=== PATIENT | male | born 1950 | race Caucasian/White ===

== ENCOUNTER 2018-12-14 14:22 | Inpatient (IN) | payer OTHER ==
[~2018-12-14] VITALS: Ht 172.7 cm; Wt 205.0 kg
--- NOTE | 2018-12-14 14:42 | NUR ---
PT IS IN ROOM #1B. DR TRIPATHI EVALUATED THE PT.
[2018-12-14 15:01] LABS: BASOPHILS # (AUTO) 0.1 K/uL (0.0-8.0); BASOPHILS % (AUTO) 0.8 % (0.0-2.0); EOSINOPHILS # (AUTO) 0.1 K/uL (0.0-0.7); EOSINOPHILS % (AUTO) 1.5 % (0.0-7.0); HEMATOCRIT 44.5 % (36.7-47.1); HEMOGLOBIN 14.3 g/dL (12.5-16.3); LYMPHOCYTES # (AUTO) 1.3 K/uL (20.0-40.0); LYMPHOCYTES % (AUTO) 19.9 % (20.5-51.5); MEAN CORPUSCULAR HEMOGLOBIN 32.2 uug (23.8-33.4); MEAN CORPUSCULAR HGB CONC 32 g/dL (32.5-36.3); MEAN CORPUSCULAR VOLUME 100.1 fL (73.0-96.2); MONOCYTES # (AUTO) 0.9 K/uL (2.0-10.0); MONOCYTES % (AUTO) 13.6 % (0.0-11.0); NEUTROPHILS # (AUTO) 4.1 K/uL (1.8-8.9); NEUTROPHILS % (AUTO) 64.2 % (38.5-71.5); PLATELET COUNT (AUTO) 229 K/uL (152-348); RED BLOOD CELL COUNT(AUTO) 4.45 MIL/uL (4.06-5.63); WHITE BLOOD COUNT (AUTO) 6.4 K/uL (3.6-10.2)
[2018-12-14 15:03] LABS: CREATININE 1.1 mg/dL (0.6-1.3); POTASSIUM 3.8 mmol/L (3.5-5.1)
[2018-12-14 15:05] LABS: ABG BASE EXCESS 8.2 mmol/L; ABG HCO3 36.5 mmol/L; ABG PCO2 66.8 mmHg (35.0-45.0); ABG PH 7.355 (7.350-7.450); ABG PO2 75.1 mmHg (75.0-100.0); ABG SITE RIGHT RADIAL; ABG TOTAL HEMOGLOBIN 15.1 G/dL (13.5-18.0); COHb 2.3 % (0.5-1.5); MetHb 0.1 % (0.0-1.5); O2Hb 92.1 % (94.0-97.0); VENT MODE Nasal Cannula
[2018-12-14 15:15] LABS: BILIRUBIN,DIRECT 1.3 mg/dL (0.0-0.2); TOTAL PROTEIN, SERUM 7.3 g/dL (6.4-8.2)
[2018-12-14] MEDS ORDERED: FUROSEMIDE 20 MG/2 ML VIAL IV ONE (15:30)
[2018-12-14] MEDS ORDERED: FUROSEMIDE 40 MG/4 ML VIAL ONE (15:40)
[2018-12-14] MEDS ORDERED: FURO-151 PO (15:46)
[2018-12-14] MEDS ORDERED: METO-357 PO (15:46)
[2018-12-14] MEDS ORDERED: ALLO100T PO (15:51)
[2018-12-14] MEDS ORDERED: TAMS-3 PO (15:51)
[2018-12-14] MEDS ORDERED: GABA-534 PO (15:51)
[2018-12-14] MEDS ORDERED: WARF3TAB29 PO (15:51)
[2018-12-14] MEDS ORDERED: FINA5TAB11 PO (15:51)
[2018-12-14] MEDS ORDERED: CHOL10005 PO (15:51)
[2018-12-14] MEDS ORDERED: COLCHICINE PO (15:51)
--- NOTE | 2018-12-14 16:09 | NUR ---
BARIATHRIC BED WAS ORDERD FOR THE PT FROM [employer]. . AURELIO IS 2 HRS.
[2018-12-14] MEDS ORDERED: MORPHINE SULFATE 2 MG/1 ML DISP.SYRIN IV PRN (18:00)
[2018-12-14] MEDS ORDERED: WARFARIN SODIUM 3 MG PO SCH (18:00)
[2018-12-14] MEDS ORDERED: ONDANSETRON 4 MG/2 ML VIAL IV PRN (18:00)
[2018-12-14] MEDS ORDERED: [UNRECOGNIZED DRUG - OTHER] PO SCH (18:00)
[2018-12-14] MEDS ORDERED: Z GUARD REMEDY PASTE 57 GM TUBE TOP PRN (18:00)
[2018-12-14] MEDS ORDERED: MAGNESIUM HYDROXIDE 30 ML LIQUID UDC PO PRN (18:00)
[2018-12-14] MEDS ORDERED: ENOXAPARIN SODIUM 40 MG/0.4 ML DISP.SYRIN SQ SCH (18:00)
[2018-12-14] MEDS ORDERED: TEMAZEPAM 15 MG CAPSULE PO PRN (18:00)
[2018-12-14] MEDS ORDERED: CHOLECALCIFEROL U PO SCH (18:00)
[2018-12-14] MEDS ORDERED: HYDROCODONE/APAP 5-325MG TABLET PO PRN (18:00)
[2018-12-14] MEDS ORDERED: ENOXAPARIN SODIUM 40 MG/0.4 ML DISP.SYRIN SQ ONE (18:19)
[2018-12-14] MEDS ORDERED: PANTOPRAZOLE SODIUM 40 MG TABLET.DR PO ONE (18:19)
[2018-12-14] MEDS: PANTOPRAZOLE SODIUM 40 MG TABLET.DR PO SCH (18:20)
--- NOTE | 2018-12-14 22:00 | NUR ---
Report given to Lionel SHAPE CARVER.
--- NOTE | 2018-12-14 22:15 | NUR ---
Pt downgraded to LEMUEL.
--- NOTE | 2018-12-14 22:32 | NUR ---
Report given to Keely SHAVER LEMUEL.
--- NOTE | 2018-12-14 23:00 | NUR ---
Received patient from ED via bariatric bed accompanied by 2 ED nurses. Patient is alert and oriented x 3, noted patient obese and unable to ambulate but he is able to move his arms to perform some ADLs and able to move his legs as well. Patient is continent. He has oxygen support at 5lpm via nasal cannula and he is saturating at 95%. He has an IV access on his right arm, 18g intact. Patient oriented to unit to which he verbalized understanding. Patient is admitted under LEMUEL status. Will closely monitor.
[2018-12-15] VITALS (8 sets, daily range): BP systolic 93–134; BP diastolic 51–78
--- NOTE | 2018-12-15 06:38 | NUR ---
Patient slept intermittently throughout the shift. No complaints made. Attended all needs. Ensured safety and comfort. Noted chest xray was just taken by radiologist.
[2018-12-15 07:49] LABS: BASOPHILS % (AUTO) 0.8 % (0.0-2.0); EOSINOPHILS # (AUTO) 0.1 K/uL (0.0-0.7); EOSINOPHILS % (AUTO) 1.7 % (0.0-7.0); HEMATOCRIT 43.5 % (36.7-47.1); HEMOGLOBIN 14.1 g/dL (12.5-16.3); LYMPHOCYTES # (AUTO) 1.2 K/uL (20.0-40.0); LYMPHOCYTES % (AUTO) 21.1 % (20.5-51.5); MEAN CORPUSCULAR HEMOGLOBIN 32.2 uug (23.8-33.4); MEAN CORPUSCULAR HGB CONC 32 g/dL (32.5-36.3); MEAN CORPUSCULAR VOLUME 99.7 fL (73.0-96.2); MONOCYTES # (AUTO) 0.7 K/uL (2.0-10.0); MONOCYTES % (AUTO) 12.6 % (0.0-11.0); NEUTROPHILS # (AUTO) 3.5 K/uL (1.8-8.9); NEUTROPHILS % (AUTO) 63.8 % (38.5-71.5); PLATELET COUNT (AUTO) 213 K/uL (152-348); RED BLOOD CELL COUNT(AUTO) 4.37 MIL/uL (4.06-5.63); WHITE BLOOD COUNT (AUTO) 5.5 K/uL (3.6-10.2)
--- NOTE | 2018-12-15 08:00 | NUR ---
RESTING COMFORTABLY, AWAKE AND ABLE TO VERBALIZE NEEDS WITH 5L NC, O2 REDUCED TO 3L SATURATING 91%. CONTROLLED ABIB ON MONITOR
[2018-12-15 08:10] LABS: ALANINE AMINOTRANSFERASE < 6 U/L (16-63); ALKALINE PHOSPHATASE 130 U/L (50-136); ASPARTATE AMINOTRANSFERASE 27 U/L (15-37); CARBON DIOXIDE 37 mmol/L (21-32); CHLORIDE 102 mmol/L (98-107); CHOLESTEROL 56 mg/dL (<200); GLUCOSE 85 mg/dL (74-106); HDL CHOLESTEROL 15 mg/dL (40-60); MAGNESIUM 1.8 mg/dL (1.8-2.4); PHOSPHOROUS 3.5 mg/dL (2.5-4.9); POTASSIUM 4.1 mmol/L (3.5-5.1); TOTAL PROTEIN, SERUM 7.2 g/dL (6.4-8.2); TRIGLYCERIDES 52 MG/DL (30-150); UREA NITROGEN, BLOOD 13 mg/dL (7-18)
[2018-12-15 08:18] LABS: THYROID STIMULATING HORMONE 1.761 mIU/mL (0.358-3.740)
[2018-12-15] MEDS: TAMSULOSIN HCL 0.4 MG CAP.SR.24H PO SCH (08:35)
[2018-12-15] MEDS: ALLOPURINOL 100 MG TABLET PO SCH (08:35)
[2018-12-15] MEDS: FUROSEMIDE 40 MG/4 ML VIAL IV SCH ×3 (08:35→17:22)
[2018-12-15] MEDS: FINASTERIDE 5 MG TABLET PO SCH (08:35)
[2018-12-15] MEDS: GABAPENTIN 300 MG CAPSULE PO SCH ×3 (08:35→17:22)
[2018-12-15 08:36] LABS: *BILIRUBIN,URIN NEGATIVE (NEGATIVE); *BLOOD, URINE NEGATIVE (NEGATIVE); *CLARITY,URINE CLEAR (CLEAR); *COLOR,URINE YELLOW (YELLOW); *KETONES,URINE NEGATIVE (NEGATIVE); LEUKOCYTE ESTERASE ,URINE TRACE (NEGATIVE); NITRITE, URINE NEGATIVE (NEGATIVE); PH,URINE 5.5 (5.0-8.0); UGLUCOSE NEGATIVE (NEGATIVE)
[2018-12-15] MEDS: METOPROLOL SUCCINATE XL 50 MG TAB.SR.24H PO SCH (08:36)
[2018-12-15 08:38] LABS: BACTERIA,URINE NONE SEEN /HPF (NONE SEEN); RBC,URINE NONE SEEN /HPF (0-3); SQUAMOUS EPITHELIAL CELL,UR FEW /HPF (NONE SEEN); WBC,URINE 0-3 /HPF (0-3)
[2018-12-15] MEDS ORDERED: FUROSEMIDE 40 MG TABLET PO SCH (09:00)
--- NOTE | 2018-12-15 13:16 | NUR ---
CONTINUE CURRENT TX PLAN, DIURETICS AND HEART MONITORING CONTROLLED AFIB ON MONITOR.
[2018-12-15] MEDS ORDERED: WARFARIN SODIUM 1 MG TABLET PO SCH (17:00)
[2018-12-15] MEDS ORDERED: WARFARIN SODIUM 2 MG TABLET PO SCH (17:00)
--- NOTE | 2018-12-15 18:22 | NUR ---
CONTINUE WITH O2 AT 5L NC SATURATING 92%, TOLERATING LASIX IV ORDERED. BP WNL. REMAINS AFIB ON MONITOR CONTROLLED
[2018-12-15] MEDS: ALBUTEROL SULFATE 2.5 MG/ 0.5 ML NEBU NEB PRN (20:29)
--- NOTE | 2018-12-15 23:00 | NUR ---
Patient received on NC with bubble humidifier at 5LpmO2 . PRN Inline HHN Tx administered per SOB. No adverse reactions noted. Placed on Bipap 15/5 RR16 per MD order. FiO2 titrated to maintain SpO2>93%. Pt states he is comfortable on current settings. Will continue to monitor throughout shift.
[2018-12-16 00:42] VITALS: BP 116/74
[2018-12-16 05:00] VITALS: BP 111/66
[2018-12-16] MEDS: PANTOPRAZOLE SODIUM 40 MG TABLET.DR PO SCH (06:11)
[2018-12-16 07:16] LABS: BASOPHILS % (AUTO) 0.2 % (0.0-2.0); EOSINOPHILS % (AUTO) 0.6 % (0.0-7.0); HEMATOCRIT 42.9 % (36.7-47.1); HEMOGLOBIN 13.6 g/dL (12.5-16.3); LYMPHOCYTES # (AUTO) 1.2 K/uL (20.0-40.0); LYMPHOCYTES % (AUTO) 19.8 % (20.5-51.5); MEAN CORPUSCULAR HGB CONC 32 g/dL (32.5-36.3); MEAN CORPUSCULAR VOLUME 100.5 fL (73.0-96.2); MONOCYTES # (AUTO) 0.7 K/uL (2.0-10.0); MONOCYTES % (AUTO) 11.6 % (0.0-11.0); NEUTROPHILS # (AUTO) 4.1 K/uL (1.8-8.9); NEUTROPHILS % (AUTO) 67.8 % (38.5-71.5); PLATELET COUNT (AUTO) 207 K/uL (152-348); RED BLOOD CELL COUNT(AUTO) 4.27 MIL/uL (4.06-5.63); WHITE BLOOD COUNT (AUTO) 6.1 K/uL (3.6-10.2)
--- NOTE | 2018-12-16 07:17 | NUR ---
AWAKE ALERT AND ORIENTED X3 RESTING COMFORTABLY WITH 5L O2 NC. CONTROLLED AFIB ON MONITOR
[2018-12-16 07:18] LABS: POTASSIUM 3.9 mmol/L (3.5-5.1)
[2018-12-16 07:45] VITALS: BP 117/80
[2018-12-16] MEDS: FINASTERIDE 5 MG TABLET PO SCH (08:19)
[2018-12-16] MEDS: METOPROLOL SUCCINATE XL 50 MG TAB.SR.24H PO SCH (08:19)
[2018-12-16] MEDS: GABAPENTIN 300 MG CAPSULE PO SCH ×3 (08:20→17:32)
[2018-12-16] MEDS: ALLOPURINOL 100 MG TABLET PO SCH (08:20)
[2018-12-16] MEDS: FUROSEMIDE 40 MG/4 ML VIAL IV SCH ×3 (08:20→17:33)
[2018-12-16] MEDS: TAMSULOSIN HCL 0.4 MG CAP.SR.24H PO SCH (08:20)
[2018-12-16 11:17] VITALS: BP 108/69
--- NOTE | 2018-12-16 11:55 | NUR ---
SEEN BY PHYSICAL THERAPY AT BEDSIDE SEE NOTES
[2018-12-16] MEDS ORDERED: METOLAZONE 5 MG TABLET PO ONE (12:30)
[2018-12-16 15:17] VITALS: BP 114/72
[2018-12-16 19:51] VITALS: BP 119/81
[2018-12-17] VITALS (7 sets, daily range): BP systolic 104–134; BP diastolic 64–86
--- NOTE | 2018-12-17 00:01 | NUR ---
Resting comfortably. Placed on BiPaP by RT; after midnight. Incon't. urine & stool. Remains on MaxxAir rotation bed. Sleeping well.
[2018-12-17] MEDS: PANTOPRAZOLE SODIUM 40 MG TABLET.DR PO SCH (05:59)
[2018-12-17 07:23] LABS: BASOPHILS % (AUTO) 0.7 % (0.0-2.0); EOSINOPHILS # (AUTO) 0.1 K/uL (0.0-0.7); EOSINOPHILS % (AUTO) 0.9 % (0.0-7.0); HEMATOCRIT 45.5 % (36.7-47.1); HEMOGLOBIN 14.4 g/dL (12.5-16.3); LYMPHOCYTES # (AUTO) 1.2 K/uL (20.0-40.0); LYMPHOCYTES % (AUTO) 18.6 % (20.5-51.5); MEAN CORPUSCULAR HGB CONC 32 g/dL (32.5-36.3); MEAN CORPUSCULAR VOLUME 101.1 fL (73.0-96.2); MONOCYTES # (AUTO) 0.7 K/uL (2.0-10.0); MONOCYTES % (AUTO) 12.1 % (0.0-11.0); NEUTROPHILS # (AUTO) 4.2 K/uL (1.8-8.9); NEUTROPHILS % (AUTO) 67.7 % (38.5-71.5); PLATELET COUNT (AUTO) 179 K/uL (152-348); WHITE BLOOD COUNT (AUTO) 6.2 K/uL (3.6-10.2)
--- NOTE | 2018-12-17 08:30 | NUR ---
PT REFUSED TO HAVE AN ABG AT THIS TIME.
[2018-12-17 09:11] LABS: CREATININE 1.1 mg/dL (0.6-1.3); MAGNESIUM 1.7 mg/dL (1.8-2.4); PHOSPHOROUS 3.4 mg/dL (2.5-4.9); POTASSIUM 3.4 mmol/L (3.5-5.1)
--- NOTE | 2018-12-17 09:15 | NUR ---
RECIEVED AN ABNORMAL RESULT FROM THE LAB INR-6.2, CO2-42.
--- NOTE | 2018-12-17 09:30 | NUR ---
SEEN AND EXAMINED BY DR ANTHONY WITH NEW ORDERS. PT GOT CONVINCED TO HAVE AN ABG PER DR ANTHONY. NOTIFIED RT.
[2018-12-17] MEDS: METOPROLOL SUCCINATE XL 50 MG TAB.SR.24H PO SCH (09:33)
[2018-12-17] MEDS: FUROSEMIDE 40 MG/4 ML VIAL IV SCH ×3 (09:33→17:40)
[2018-12-17] MEDS: FINASTERIDE 5 MG TABLET PO SCH (09:34)
[2018-12-17] MEDS: GABAPENTIN 300 MG CAPSULE PO SCH ×3 (09:34→17:41)
[2018-12-17] MEDS: ALLOPURINOL 100 MG TABLET PO SCH (09:41)
--- NOTE | 2018-12-17 09:45 | NUR ---
NOTIFIED LINDA, AND HE ORDERED TO HOLD COUMADIN.
[2018-12-17] MEDS: TAMSULOSIN HCL 0.4 MG CAP.SR.24H PO SCH (09:56)
[2018-12-17 11:08] LABS: ABG PCO2 72.4 mmHg (35.0-45.0); ABG PH 7.411 (7.350-7.450); ABG PO2 65.4 mmHg (75.0-100.0); ABG SITE RIGHT RADIAL; ABG TOTAL HEMOGLOBIN 15.7 G/dL (13.5-18.0); COHb 2.4 % (0.5-1.5); MetHb 0.2 % (0.0-1.5); O2Hb 91.1 % (94.0-97.0); VENT MODE Nasal Cannula
[2018-12-17] MEDS ORDERED: POTASSIUM CHLORIDE 20 MEQ TAB.PRT.SR PO ONE (11:15)
[2018-12-17] MEDS ORDERED: MAGNESIUM OXIDE 400 MG TABLET PO ONE (11:15)
--- NOTE | 2018-12-17 11:30 | NUR ---
ABG RESULT IN. PCO2-72.4, PO2-65.7, PH-7.41. O2SAT IS MAINTAINEDE AT 94%. NO APARENT RESPIRATORY DISTRESS NOTED.
--- NOTE | 2018-12-17 15:06 | NUR ---
WOUND CARE CONSULT: PT REFUSED SKIN ASSESSMENT AT THIS TIME. PT BECOMES VERY SHORT OF BREATH EASILY. RECOMMENDATIONS MADE FOR SKIN PROTECTION. DISCUSSED WITH NURSING STAFF. PT ON [facility] ETS AIR BED. WILL SEE PRN.
[2018-12-17] MEDS ORDERED: COUMADIN VARIABLE DOSE REMINDE XX SCH (17:00)
--- NOTE | 2018-12-17 20:00 | NUR ---
RECEIVED PT RESTING QUITELY BUT AROUSABLE. ON O2 @ 5L NC W/ HUMIDIFIER, W/ O2 SAT OF 94%. HEP LOCK ON R FA INTACT & PATENT. DENIES PAIN , NOT IN ANY DISTRESS.
--- NOTE | 2018-12-17 21:00 | NUR ---
PATIENT PLACED ON BIPAP AT THIS TIME PER NOCTURNAL ORDER. REFER TO RESP. MECHANICAL VENT COMPLEX NOTES FOR VENT SETTINGS AND SET ALARMS. CONTINUOUS PULSE OXIMETER IS ON AND AUDIBLE. PROTECTA GEL IS IN PLACE. AMBU BAG AT BEDSIDE. PT IS STABLE AT THIS TIME. WILL CONTINUE TO MONITOR THROUGHOUT SHIFT. Addendum: 12/18/18 at 0353 by BESSIE LEARY RT INTERVENTION DONE AT 2300
--- NOTE | 2018-12-17 22:00 | NUR ---
PLACED ON BIPAP W/ SETTINGS OF I-15/E-5, RATE-16,FIO2-50% W/ O2 SAT OF 94%.
[2018-12-17] MEDS ORDERED: ACETAzolamide SODIUM 500 MG VIAL IV ONE (22:30)
[2018-12-18] VITALS: BP 126/69
[2018-12-18 04:00] VITALS: BP 126/69
--- NOTE | 2018-12-18 06:00 | NUR ---
resting quitely on bipap after repositioned in bed.
[2018-12-18] MEDS: PANTOPRAZOLE SODIUM 40 MG TABLET.DR PO SCH (06:38)
[2018-12-18 06:42] LABS: BASOPHILS % (AUTO) 0.4 % (0.0-2.0); EOSINOPHILS # (AUTO) 0.1 K/uL (0.0-0.7); EOSINOPHILS % (AUTO) 1.2 % (0.0-7.0); HEMATOCRIT 47.2 % (36.7-47.1); HEMOGLOBIN 14.8 g/dL (12.5-16.3); LYMPHOCYTES # (AUTO) 1.1 K/uL (20.0-40.0); LYMPHOCYTES % (AUTO) 16.3 % (20.5-51.5); MEAN CORPUSCULAR HEMOGLOBIN 31.9 uug (23.8-33.4); MEAN CORPUSCULAR HGB CONC 31 g/dL (32.5-36.3); MEAN CORPUSCULAR VOLUME 101.6 fL (73.0-96.2); MONOCYTES # (AUTO) 0.8 K/uL (2.0-10.0); NEUTROPHILS # (AUTO) 4.9 K/uL (1.8-8.9); NEUTROPHILS % (AUTO) 70.1 % (38.5-71.5); PLATELET COUNT (AUTO) 196 K/uL (152-348); RED BLOOD CELL COUNT(AUTO) 4.64 MIL/uL (4.06-5.63); WHITE BLOOD COUNT (AUTO) 6.9 K/uL (3.6-10.2)
[2018-12-18 07:16] LABS: MAGNESIUM 1.7 mg/dL (1.8-2.4)
[2018-12-18 07:19] LABS: POTASSIUM 3.3 mmol/L (3.5-5.1)
--- NOTE | 2018-12-18 07:30 | NUR ---
report received from Christina SHAVER 68 yr old male was admitted on 12/14/18 for shortness of breath. on BIPAP all night 31/10 rate 16 fio2 50% .has saline lock . garay catheter intact ekg afib hr 70/min Addendum: 12/18/18 at 0752 by LISA HENDERSON RN Amended: Links added.
[2018-12-18 08:10] VITALS: BP 138/61
[2018-12-18] MEDS ORDERED: POTASSIUM CHLORIDE 20 MEQ TAB.PRT.SR PO ONE ×2 (08:45→15:45)
[2018-12-18] MEDS ORDERED: MAGNESIUM OXIDE 400 MG TABLET PO ONE (08:45)
[2018-12-18] MEDS: FUROSEMIDE 40 MG/4 ML VIAL IV SCH ×3 (08:51→16:58)
[2018-12-18] MEDS: GABAPENTIN 300 MG CAPSULE PO SCH ×3 (08:55→16:58)
[2018-12-18] MEDS: METOPROLOL SUCCINATE XL 50 MG TAB.SR.24H PO SCH (08:55)
[2018-12-18] MEDS: FINASTERIDE 5 MG TABLET PO SCH (08:55)
[2018-12-18] MEDS: ALLOPURINOL 100 MG TABLET PO SCH (08:57)
[2018-12-18 09:52] LABS: ABG BASE EXCESS 26.1 mmol/L; ABG HCO3 59.4 mmol/L; ABG PCO2 105.3 mmHg (35.0-45.0); ABG PH 7.369 (7.350-7.450); ABG PO2 60.3 mmHg (75.0-100.0); ABG SITE LEFT RADIAL; ABG TOTAL HEMOGLOBIN 15.9 G/dL (13.5-18.0); COHb 2.6 % (0.5-1.5); MetHb 0.2 % (0.0-1.5); O2Hb 87.6 % (94.0-97.0); VENT MODE Nasal Cannula
[2018-12-18] MEDS: TAMSULOSIN HCL 0.4 MG CAP.SR.24H PO SCH (10:03)
--- NOTE | 2018-12-18 10:05 | NUR ---
k3.3 covered with Kdur 40meq po magnesium 1.7 covered with mag oxide 800mg po Addendum: 12/18/18 at 1427 by LISA HENDERSON RN Amended: Links added.
[2018-12-18] MEDS: POLYVINYL ALCOHOL OPHT DROPS 15 ML BOTTLE EACHEYE PRN (10:22)
--- NOTE | 2018-12-18 11:38 | NUR ---
WOUND CARE CONSULT: PT PRESENTS WITH RESOLVING REDNESS AND EDEMA TO LOWER LEGS AND RASH TO LEFT ABDOMINAL FOLD. RECOMMENDATIONS MADE FOR SKIN PROTECTION AND CARE. DISCUSSED WITH NURSING STAFF. PT ON LOW AIRLOSS [facility] BED. AUBREY NOTED AT THIS TIME WITH LARGE AMOUNT OF URINE IN DRAINAGE BAG. PT INCONTINENT OF STOOL. WILL SEE PRN. GRESHAM IN AGREEMENT WITH PLAN OF CARE. Addendum: 12/18/18 at 1141 by CAITLYN EVERETT RN Amended: Links added.
[2018-12-18] MEDS ORDERED: ACETAzolamide SODIUM 500 MG VIAL IV ONE (13:15)
[2018-12-18 13:34] VITALS: BP 92/51
--- NOTE | 2018-12-18 14:21 | NUR ---
mindi this am with following results ph 7.36, pco2 105 and po2 60. patient advised back to BIPAP but he said he was comfortabl at present. so2 saturation 88-92%. but during physical therapy he was desaturating to 85%. had lunch and patient agreed will go back to BIPAP till dinner time Addendum: 12/18/18 at 1422 by LISA HENDERSON RN Amended: Links added.
--- NOTE | 2018-12-18 15:45 | NUR ---
seen by dr He. with new orders. aware of patient's current status Addendum: 12/18/18 at 1626 by LISA HENDERSON RN Amended: Links added.
[2018-12-18 15:56] VITALS: BP 90/52
--- NOTE | 2018-12-18 16:00 | NUR ---
patient more drowsy and weaker, unable to eat dinner , and unable to help with turning. placed back on BIPAP machine 15 rate 16 fio2 50% Addendum: 12/18/18 at 1859 by LISA HENDERSON RN Amended: Links added. Addendum: 12/18/18 at 1900 by LISA HENDERSON RN Amended: Links added.
[2018-12-18] MEDS: CLOTRIMAZOLE 1% CREAM 30 GM TUBE TOP SCH (16:58)
[2018-12-18] MEDS: ACETAzolamide SODIUM 500 MG VIAL IV SCH (16:58)
--- NOTE | 2018-12-18 18:15 | NUR ---
IV infiltrated right forearm /dc/d. IV 3 18 inserted via left forearm Addendum: 12/18/18 at 1900 by LISA HENDERSON RN Amended: Links added.
--- NOTE | 2018-12-18 19:21 | NUR ---
report given to Chanelle RN Addendum: 12/18/18 at 1922 by LISA HENDERSON RN Amended: Links added.
[2018-12-18 19:57] VITALS: BP 104/65
--- NOTE | 2018-12-18 21:30 | NUR ---
REC'D PT FROM LEMUEL PT LETHARGIC IS ON BIPAP SETTINGS 15/5 RATE 16 FIO2 50% LS SL DIMINISHED POLO HOB ELEVATED ABD OBESE AND FIRM BS POS SOUNDS IN ALL FOUR QUAD OVERALL APPEARANCES MORBIDLY OBESE HAS A BURGOS CATH BUT BALLOON DEFLATED IS VOID QS CL YELLOW AND IS INCONT OF URINE ALSO HYGIENCE CARE GIVEN NEEDED BLE'S SL EDEMA, HARD, AND GRAYISH AND CRUSTY VSS IS AFIB ON THE MONITOR COMFORT AND SAFETY MAINTAINED TEACHING GIVEN R/T HIS SURROUNDING, PLAN OF CARE, COMFORT AND SAFETY
--- NOTE | 2018-12-18 23:22 | NUR ---
PT ON CONT BI/PAP WITH CURRENT SETTINGS/ R 16, 50% 15/, PT WITH RT ASSIST TRANSFER FROM LEMUEL TO CCU #1, PT WITH FULL MASK, PT LETHARGIC AT TIMES, WITH SAT 99% , RR16/24 BPM, NO CHANGES MADE AT THIS TIME, REPOSITION MASK AT TIMES, GEL UNDER MASK, TO HELP KEEP SKIN FROM GETTING RED, SAT 92%-94% APPROX.Cruz TRIPATHI BANQUET HOUSEPERSON Addendum: 12/18/18 at 2357 by YARIEL TRIPATHI RT Amended: Links added.
[2018-12-19] VITALS (7 sets, daily range): BP systolic 100–140; BP diastolic 65–91
[2018-12-19 05:19] LABS: BASOPHILS % (AUTO) 0.5 % (0.0-2.0); EOSINOPHILS # (AUTO) 0.1 K/uL (0.0-0.7); EOSINOPHILS % (AUTO) 1.4 % (0.0-7.0); HEMATOCRIT 46.8 % (36.7-47.1); HEMOGLOBIN 14.7 g/dL (12.5-16.3); LYMPHOCYTES # (AUTO) 1.1 K/uL (20.0-40.0); LYMPHOCYTES % (AUTO) 15.9 % (20.5-51.5); MEAN CORPUSCULAR HEMOGLOBIN 31.8 uug (23.8-33.4); MEAN CORPUSCULAR HGB CONC 31 g/dL (32.5-36.3); MEAN CORPUSCULAR VOLUME 101.5 fL (73.0-96.2); MONOCYTES # (AUTO) 0.9 K/uL (2.0-10.0); MONOCYTES % (AUTO) 12.6 % (0.0-11.0); NEUTROPHILS # (AUTO) 4.9 K/uL (1.8-8.9); NEUTROPHILS % (AUTO) 69.6 % (38.5-71.5); PLATELET COUNT (AUTO) 154 K/uL (152-348); RED BLOOD CELL COUNT(AUTO) 4.61 MIL/uL (4.06-5.63)
[2018-12-19 05:31] LABS: BILIRUBIN,TOTAL 2.6 mg/dL (0.2-1.0); CREATININE 1.2 mg/dL (0.6-1.3); MAGNESIUM 1.9 mg/dL (1.8-2.4); PHOSPHOROUS 3.8 mg/dL (2.5-4.9); TOTAL PROTEIN, SERUM 7.3 g/dL (6.4-8.2)
[2018-12-19] MEDS: PANTOPRAZOLE SODIUM 40 MG TABLET.DR PO SCH (06:18)
--- NOTE | 2018-12-19 06:39 | NUR ---
ABNORMAL LABS CALLED TO [facility] CO2 46.2 INR 5.75
--- NOTE | 2018-12-19 07:25 | NUR ---
report given to incoming nurse all questions answered pt condition remains the same without incident
--- NOTE | 2018-12-19 07:30 | NUR ---
RECIEVED PT LYING IN BED VERY SOUND ASLEEP. PT IS MORBIDLY OBESE, ON BARIATRIC BED. PT WEARING A BIPAP THROUGH THE NIGHT, TOLERATED WELL. O2SAT IS 99%. NO APPARENT RESPIRATORY DISTRESS NOTED. HR IS AFIB WITH CONTROLLED VENTRICULAR RESPONSE. NO C/O DISCOMFORTS. AFEBRILE.
--- NOTE | 2018-12-19 08:48 | NUR ---
0840 BIPAP REMOVED AND PLACED ON 2LPM NASAL CANULA. PT AWAKE ALERT RESPONSIVE AND SHOWS NO SIGNS OF SOB OFF OF BIPAP. SPO2 WITHIN NORMAL LIMITS.
[2018-12-19] MEDS: CLOTRIMAZOLE 1% CREAM 30 GM TUBE TOP SCH ×2 (09:00→16:46)
[2018-12-19 09:10] LABS: ABG BASE EXCESS 16.8 mmol/L; ABG HCO3 45.5 mmol/L; ABG PCO2 71.1 mmHg (35.0-45.0); ABG PH 7.424 (7.350-7.450); ABG PO2 56.4 mmHg (75.0-100.0); ABG SITE RIGHT RADIAL; ABG TOTAL HEMOGLOBIN 15.4 G/dL (13.5-18.0); COHb 2.8 % (0.5-1.5); MetHb 0.1 % (0.0-1.5); O2Hb 86.5 % (94.0-97.0); VENT MODE Nasal Cannula
[2018-12-19] MEDS: ACETAzolamide SODIUM 500 MG VIAL IV SCH (09:43)
[2018-12-19] MEDS: FUROSEMIDE 40 MG/4 ML VIAL IV SCH ×3 (09:44→16:45)
[2018-12-19] MEDS: FINASTERIDE 5 MG TABLET PO SCH (09:44)
[2018-12-19] MEDS: METOPROLOL SUCCINATE XL 50 MG TAB.SR.24H PO SCH (09:45)
[2018-12-19] MEDS: GABAPENTIN 300 MG CAPSULE PO SCH ×3 (09:45→16:45)
[2018-12-19] MEDS: ALLOPURINOL 100 MG TABLET PO SCH (09:45)
[2018-12-19] MEDS: TAMSULOSIN HCL 0.4 MG CAP.SR.24H PO SCH (09:48)
--- NOTE | 2018-12-19 11:00 | NUR ---
SEEN AND EXAMINED BY DR ANTHONY WITH NEW ORDERS.
--- NOTE | 2018-12-19 14:00 | NUR ---
PT ACTIVITY DONE AT BEDSIDE, PT ABLE TO DANGLE AT SHORT PERIOD, O2 SAT MAINTAINED BETWEEN 83-87% ON 3LNC. PT CLEANED UP AND LINEN CHANGED, DIURESING WELL.
[2018-12-19] MEDS ORDERED: Z GUARD REMEDY PASTE 57 GM TUBE TOP PRN (15:30)
--- NOTE | 2018-12-19 17:00 | NUR ---
PT TRANSFERRED TO 207 VIA BED. PT HAS BEEN SLEEPING THROUGH THE DAY.
--- NOTE | 2018-12-19 19:15 | NUR ---
Received patient in bed, very lethargic but arousal to verbal stimuli. Patient alert and oriented x1. Patient denies any respiratory distress/pain or discomfort. patient o2 saturations are average 84-86%. Increased oxygenation from 2L to 4L and called RT to start patient on BiPap as ordered. patient has garay catheter with output of 500ml. patient on MaxxAir mattress. Patient has been repositioned. Will continue to monitor.
--- NOTE | 2018-12-19 19:55 | NUR ---
Pt received on 3LPM N/C. SpO2 approximately 85%. Increased FIO2 to 6LPM, SpO2 increased minimally but pt appearance remained lethargic. Pt placed on BIPAP with settings of 15/5, Rate-16, FIO2-50% Pt tolerating BIPAP settings well. SpO2-91% BIPAP alarm parameters checked, on and audible. BIPAP plugged into red emergency outlet. Pt is on continuous pulse-oximetry. Will continue to monitor.
--- NOTE | 2018-12-19 19:59 | NUR ---
RT in patients room starting BiPap. Patient initially saturating at 84% with nasal cannula 6L. Patient is now saturating at 90%.
[2018-12-20] VITALS (9 sets, daily range): BP systolic 82–107; BP diastolic 43–69
--- NOTE | 2018-12-20 06:15 | NUR ---
Patient slept comfortably in bed through out the night. When interacted with patient, he remains to be lethargic and drowsy. Patient was on bipap through out the night with rate of 16, I:E 15/5 Fio2 50% or otherwise adjusted by RT. Patient shows no respiroaty distress at this time and o2 saturations are within parameters per md. Patient on bariatric bed. Will continue to monitor and endorse plan of care to oncoming day shift nurse.
[2018-12-20 06:26] LABS: BASOPHILS % (AUTO) 0.4 % (0.0-2.0); EOSINOPHILS # (AUTO) 0.1 K/uL (0.0-0.7); EOSINOPHILS % (AUTO) 1.8 % (0.0-7.0); HEMATOCRIT 43.1 % (36.7-47.1); HEMOGLOBIN 13.8 g/dL (12.5-16.3); LYMPHOCYTES # (AUTO) 1.3 K/uL (20.0-40.0); LYMPHOCYTES % (AUTO) 18.2 % (20.5-51.5); MEAN CORPUSCULAR HEMOGLOBIN 32.1 uug (23.8-33.4); MEAN CORPUSCULAR HGB CONC 32 g/dL (32.5-36.3); MEAN CORPUSCULAR VOLUME 100.1 fL (73.0-96.2); NEUTROPHILS # (AUTO) 4.6 K/uL (1.8-8.9); NEUTROPHILS % (AUTO) 65.6 % (38.5-71.5); PLATELET COUNT (AUTO) 203 K/uL (152-348); RED BLOOD CELL COUNT(AUTO) 4.31 MIL/uL (4.06-5.63); WHITE BLOOD COUNT (AUTO) 7.1 K/uL (3.6-10.2)
[2018-12-20] MEDS: PANTOPRAZOLE SODIUM 40 MG TABLET.DR PO SCH (06:29)
--- NOTE | 2018-12-20 06:29 | NUR ---
did not administer Protonix AM medications because patients remains lethargic and drowsy.
[2018-12-20 06:38] LABS: CREATININE 1.2 mg/dL (0.6-1.3); MAGNESIUM 1.8 mg/dL (1.8-2.4); PHOSPHOROUS 3.3 mg/dL (2.5-4.9)
--- NOTE | 2018-12-20 06:50 | NUR ---
lab called for critical lab value for potassium at 2.8 and Co2 of 45.
[2018-12-20 06:56] LABS: POTASSIUM 2.8 mmol/L (3.5-5.1)
--- NOTE | 2018-12-20 07:08 | NUR ---
called [facility] for Remberto ENVIRONMENTAL SOLUTIONS ENGINEER for new orders for critical lab values. waiting for call and will endorse to day shift.
--- NOTE | 2018-12-20 07:35 | NUR ---
Spoke with VIK Sr and made aware of pt's low potassium levels. New orders received and carried out.
[2018-12-20] MEDS: GABAPENTIN 300 MG CAPSULE PO SCH ×3 (07:56→17:00)
[2018-12-20] MEDS: TAMSULOSIN HCL 0.4 MG CAP.SR.24H PO SCH (07:56)
[2018-12-20] MEDS: METOPROLOL SUCCINATE XL 50 MG TAB.SR.24H PO SCH (07:56)
[2018-12-20] MEDS: FINASTERIDE 5 MG TABLET PO SCH (07:56)
[2018-12-20] MEDS: ALLOPURINOL 100 MG TABLET PO SCH (07:57)
[2018-12-20] MEDS: CLOTRIMAZOLE 1% CREAM 30 GM TUBE TOP SCH ×2 (07:59→17:22)
--- NOTE | 2018-12-20 08:04 | NUR ---
Received patient on Bed, Resident seems lethargic, BIPAP in Placed. Saturating at 94%. Pt unable to swallow pills at this time. All morning PO meds held and MD aware.
--- NOTE | 2018-12-20 08:07 | NUR ---
Spoke with Dr. Zavala on the telephone regarding pt's consistently low blood pressure SBP 82/50. No new orders received. stated to continue monitoring pt.
[2018-12-20 09:14] LABS: ABG HCO3 48.4 mmol/L; ABG PCO2 76.3 mmHg (35.0-45.0); ABG PO2 63.4 mmHg (75.0-100.0); ABG SITE RIGHT RADIAL; ABG TOTAL HEMOGLOBIN 15.2 G/dL (13.5-18.0); COHb 2.7 % (0.5-1.5); MetHb 0.1 % (0.0-1.5); O2Hb 89.1 % (94.0-97.0); VENT MODE Nasal Cannula
--- NOTE | 2018-12-20 09:25 | NUR ---
Spoke with Dr. He at the bedside. Full report given. New orders received. To keep pt on 5L NC as juan a. BiPAP PRN if pt noted to be unresponsive.
[2018-12-20] MEDS: POTASSIUM CHLORIDE 50 ML IV SCH ×6 (09:28→12:24)
[2018-12-20] MEDS ORDERED: POTASSIUM CHLORIDE 20 MEQ TAB.PRT.SR PO SCH (09:45)
--- NOTE | 2018-12-20 09:55 | NUR ---
Spoke with Dr. He, aware of BP 82/50, with Order to still continue Diamox IV as ordered.
[2018-12-20] MEDS: ACETAzolamide SODIUM 500 MG VIAL IV SCH (09:56)
--- NOTE | 2018-12-20 14:20 | NUR ---
PO 1300 Neurontin not given, pt still lethargic, made aware.
--- NOTE | 2018-12-20 17:20 | NUR ---
PO 1700 Neurontin not given, pt still Lethargic.
[2018-12-20] MEDS: POLYVINYL ALCOHOL OPHT DROPS 15 ML BOTTLE EACHEYE PRN (17:50)
--- NOTE | 2018-12-20 19:32 | NUR ---
received patient in bed. patient still lethargic but able to respond to closed- end questions. Patient received oral care. Patient on Nasal canula with 6 L of oxygen and saturating at 87%. Patient has pus draining from right eye. Artificial drops administered and cleansed and will follow up with infectious disease. patient denies any pain at this time.
--- NOTE | 2018-12-20 19:40 | NUR ---
Pt received on N/C @ 5LPM. SpO2 approximately 86% Pt placed on BIPAP with ordered settings of 15/5, Rate-16, FIO2-50% Pt tolerating BIPAP settings well. SpO2-90% ProtectaGel in place. Good skin integrity noted at area of mask application. BIPAP alarm parameters checked, on and audible. BIPAP plugged into red emergency outlet. Pt is on continuous pulse-oximetry. Will continue to monitor.
--- NOTE | 2018-12-20 19:40 | NUR ---
, Ang, in room at bedside, transitioning patient to bipap from nasal cannula.
[2018-12-21] VITALS: BP 95/50
[2018-12-21 04:00] VITALS: BP 105/57
[2018-12-21] MEDS: PANTOPRAZOLE SODIUM 40 MG VIAL IV SCH (06:00)
--- NOTE | 2018-12-21 06:21 | NUR ---
Patient slept comfortably in bed through out the night. When interacted with patient, he remains to be lethargic and drowsy. Patient was on bipap through out the night with rate of 16, I:E 15/5 Fio2 50% or otherwise adjusted by RT. o2 saturations are within parameters per md. Patient on bariatric bed. Will continue to monitor and endorse plan of care to oncoming day shift nurse.
[2018-12-21 06:52] LABS: CREATININE 1.1 mg/dL (0.6-1.3); MAGNESIUM 1.9 mg/dL (1.8-2.4); PHOSPHOROUS 2.8 mg/dL (2.5-4.9); POTASSIUM 2.9 mmol/L (3.5-5.1)
--- NOTE | 2018-12-21 06:55 | NUR ---
interventional radiology tech at bedside
[2018-12-21 07:02] LABS: BASOPHILS % (AUTO) 0.6 % (0.0-2.0); EOSINOPHILS # (AUTO) 0.1 K/uL (0.0-0.7); HEMOGLOBIN 14.3 g/dL (12.5-16.3); LYMPHOCYTES # (AUTO) 1.5 K/uL (20.0-40.0); LYMPHOCYTES % (AUTO) 18.8 % (20.5-51.5); MEAN CORPUSCULAR HEMOGLOBIN 32.6 uug (23.8-33.4); MEAN CORPUSCULAR HGB CONC 33 g/dL (32.5-36.3); MEAN CORPUSCULAR VOLUME 100.2 fL (73.0-96.2); MONOCYTES # (AUTO) 1.2 K/uL (2.0-10.0); MONOCYTES % (AUTO) 15.2 % (0.0-11.0); NEUTROPHILS # (AUTO) 5.1 K/uL (1.8-8.9); NEUTROPHILS % (AUTO) 64.4 % (38.5-71.5); PLATELET COUNT (AUTO) 212 K/uL (152-348); RED BLOOD CELL COUNT(AUTO) 4.39 MIL/uL (4.06-5.63); WHITE BLOOD COUNT (AUTO) 7.9 K/uL (3.6-10.2)
--- NOTE | 2018-12-21 07:35 | NUR ---
Spoke with VIK Sr on the telephone and made aware of pt's low potassium levels this morning. New orders received and carried out.
--- NOTE | 2018-12-21 07:36 | NUR ---
Orienting with SIVAKUMAR Pelayo today. All assessment and documentation reviewed by RN.
[2018-12-21] MEDS: TAMSULOSIN HCL 0.4 MG CAP.SR.24H PO SCH (08:40)
[2018-12-21] MEDS: GABAPENTIN 300 MG CAPSULE PO SCH ×3 (08:40→17:18)
[2018-12-21] MEDS: FINASTERIDE 5 MG TABLET PO SCH (08:40)
[2018-12-21] MEDS: CHOLECALCIFEROL 1,000 UNIT TABLET PO SCH (08:41)
[2018-12-21] MEDS: ALLOPURINOL 100 MG TABLET PO SCH (08:43)
[2018-12-21] MEDS: METOPROLOL SUCCINATE XL 50 MG TAB.SR.24H PO SCH (08:47)
[2018-12-21] MEDS: ACETAzolamide SODIUM 500 MG VIAL IV SCH (08:49)
[2018-12-21] MEDS: POTASSIUM CHLORIDE 50 ML IV SCH ×7 (08:53→18:26)
[2018-12-21] MEDS: CLOTRIMAZOLE 1% CREAM 30 GM TUBE TOP SCH ×2 (08:53→17:24)
[2018-12-21 08:59] LABS: BASOPHILS % (MANUAL) 1 % (0-2); LYMPHOCYTES % (MANUAL) 24 % (20-40); METAMYELOCYTES % 1 % (0-1); MONOCYTES % (MANUAL) 11 % (2-10); NEUTROPHILS % (MANUAL) 63 % (42-75)
[2018-12-21 09:19] LABS: ABG BASE EXCESS 15.3 mmol/L; ABG HCO3 43.7 mmol/L; ABG PCO2 68.4 mmHg (35.0-45.0); ABG PH 7.423 (7.350-7.450); ABG PO2 57.5 mmHg (75.0-100.0); ABG SITE RIGHT RADIAL; ABG TOTAL HEMOGLOBIN 15.5 G/dL (13.5-18.0); COHb 3.1 % (0.5-1.5); MetHb 0.3 % (0.0-1.5); O2Hb 85.4 % (94.0-97.0); VENT MODE Nasal Cannula
--- NOTE | 2018-12-21 10:51 | NUR ---
Dr. He here to see pt. Full report given. New orders received.
[2018-12-21 11:33] VITALS: BP 123/84
[2018-12-21 15:59] VITALS: BP 123/74
[2018-12-21] MEDS: POLYVINYL ALCOHOL OPHT DROPS 15 ML BOTTLE EACHEYE PRN (17:24)
--- NOTE | 2018-12-21 19:45 | NUR ---
Received pt sitting up in bariatric bed, HOB elevated, on 5L NC. O2 sats up to 93%. Tele noted to be AFIB with HR of 94. Pt lethargic but responds to name call and withdraws to pain. Pt is able to open eyes slightly when asked to. PIV on left FA 18 g patent and intact. No signs of acute respiratory distress. Assessment completed. Aspiration precautions and safety measures initiated.
[2018-12-21] MEDS: ACETAMINOPHEN 325 MG TABLET PO PRN (20:04)
--- NOTE | 2018-12-21 20:30 | NUR ---
Patient endorsed on 5LpmO2 via Nasal Cannula, Spo2 > 88%. Placed on Bipap and decreased Fio2 to 36% per COPD and target range of 88-92%. Patient tolerated Bipap settings of 15/5 RR16. Alarms assessed and are on/ audible. Will continue to monitor.
[2018-12-21 20:41] VITALS: BP 100/63
--- NOTE | 2018-12-21 20:45 | NUR ---
RT at bedside. BIPAP placed with settings: IPAP 15, EPAP 5, Rate 16, FIO2 36%. Pt tolerating settings well. O2 sat above > 88%. No acute distress noted. Call light within reach. Safety precautions maintained. Continue to monitor pt closely.
[2018-12-22] VITALS (8 sets, daily range): BP systolic 91–113; BP diastolic 53–77
--- NOTE | 2018-12-22 05:07 | NUR ---
AM care provided. Pt cleaned and washed. Wound care management as ordered. Pt maintained O2 sats above 88%. Pt denies SOB, pain or discomfort at this time. Aspiration precautions and safety measures maintained at all times. Continue to monitor pt.
[2018-12-22] MEDS: PANTOPRAZOLE SODIUM 40 MG VIAL IV SCH (06:47)
[2018-12-22 06:54] LABS: BILIRUBIN,TOTAL 4.2 mg/dL (0.2-1.0); CREATININE 1.2 mg/dL (0.6-1.3); MAGNESIUM 2.1 mg/dL (1.8-2.4); PHOSPHOROUS 2.8 mg/dL (2.5-4.9); TOTAL PROTEIN, SERUM 7.3 g/dL (6.4-8.2)
[2018-12-22 06:59] LABS: BASOPHILS # (AUTO) 0.1 K/uL (0.0-8.0); BASOPHILS % (AUTO) 0.7 % (0.0-2.0); EOSINOPHILS # (AUTO) 0.1 K/uL (0.0-0.7); EOSINOPHILS % (AUTO) 1.5 % (0.0-7.0); HEMOGLOBIN 13.7 g/dL (12.5-16.3); LYMPHOCYTES # (AUTO) 1.4 K/uL (20.0-40.0); LYMPHOCYTES % (AUTO) 18.5 % (20.5-51.5); MEAN CORPUSCULAR HGB CONC 32 g/dL (32.5-36.3); MEAN CORPUSCULAR VOLUME 100.7 fL (73.0-96.2); MONOCYTES # (AUTO) 1.2 K/uL (2.0-10.0); NEUTROPHILS # (AUTO) 4.8 K/uL (1.8-8.9); NEUTROPHILS % (AUTO) 63.3 % (38.5-71.5); PLATELET COUNT (AUTO) 202 K/uL (152-348); RED BLOOD CELL COUNT(AUTO) 4.27 MIL/uL (4.06-5.63); WHITE BLOOD COUNT (AUTO) 7.5 K/uL (3.6-10.2)
--- NOTE | 2018-12-22 07:30 | NUR ---
Nurse Notes: report from the night nurse Sia Burns RN, potassium was 3.0, LOAN INTERVIEWER Remberto was notfied, ordering 60meQ potassium IV with 40 meQ potassium to be given orally. IV is hep lock, Patient is received sleeping with BiPap on 31/10, rate 16, 36%.
[2018-12-22 07:34] LABS: EOSINOPHILS % (MANUAL) 1 % (0-8); LYMPHOCYTES % (MANUAL) 19 % (20-40); MONOCYTES % (MANUAL) 16 % (2-10); NEUTROPHILS % (MANUAL) 64 % (42-75)
--- NOTE | 2018-12-22 08:10 | NUR ---
PT RECEIVED SLEEPING ON BIPAP. PT EASILY AWOKEN, PT IS RESPONSIVE. BIPAP REMOVED BY RT, PT PLACED ON 6L N/C. CONT. P.OX AT BEDSIDE. ORAL SUCTION PERFORMED. NO SOB NOTED AT THIS TIME. WILL CONTINUE TO MONITOR.
[2018-12-22] MEDS: POTASSIUM CHLORIDE 50 ML IV SCH ×7 (08:29→19:41)
[2018-12-22] MEDS: PROTEIN SUPPLEMENT (PROSTAT) 30 ML LIQUID PO SCH (09:00)
[2018-12-22] MEDS ORDERED: POTASSIUM CHLORIDE 20 MEQ POWDER PACKET PO ONE (09:00)
[2018-12-22] MEDS: CLOTRIMAZOLE 1% CREAM 30 GM TUBE TOP SCH ×2 (09:00→17:00)
[2018-12-22] MEDS: TAMSULOSIN HCL 0.4 MG CAP.SR.24H PO SCH (09:00)
[2018-12-22] MEDS: METOPROLOL SUCCINATE XL 50 MG TAB.SR.24H PO SCH (09:00)
[2018-12-22] MEDS: ALBUTEROL SULFATE 2.5 MG/ 0.5 ML NEBU NEB PRN (09:13)
[2018-12-22] MEDS ORDERED: LACTULOSE 20 G/30 ML LIQUID UDC PO ONE (09:45)
--- NOTE | 2018-12-22 09:45 | NUR ---
Nurse Notes: report given to registry nurse Doc SHAVER, 1000 assessment will be completed by Doc SHAVER, patient needs oral medications given, patient is back on his bi-pap, respiratory therapy was given earlier, and RT place pt back on bi-pap.
--- NOTE | 2018-12-22 10:00 | NUR ---
I RECIEVED VERBAL REPORT FROM, Tyrell FORDE. SHE stated as she walked out the door that, " i gave the patient his p.o. potassium. " the e.m.r. shows that this med. was not scanned, or given. Addendum: 12/22/18 at 1828 by DANIELITO ZAVALA RN I spoke with pharmacist about the p.o. potassium that nellie forde stated that she had given this morning and was not scanned.
--- NOTE | 2018-12-22 10:20 | NUR ---
Nurse Notes: potassium bolus 2nd dose was hanged. patient needs oral 40 meQ given, along with his oral medications, patient needs to be awakened to swallow,
[2018-12-22] MEDS: CIPROFLOXACIN 0.3% OPHT DROP 2.5 ML BOTTLE RIGHTEYE SCH ×7 (11:00→23:24)
[2018-12-22] MEDS: ACETAzolamide SODIUM 500 MG VIAL IV SCH (12:27)
[2018-12-22] MEDS: ALLOPURINOL 100 MG TABLET PO SCH (12:28)
[2018-12-22] MEDS: FINASTERIDE 5 MG TABLET PO SCH (12:29)
[2018-12-22] MEDS: GABAPENTIN 300 MG CAPSULE PO SCH ×3 (12:29→17:00)
[2018-12-22] MEDS: POLYVINYL ALCOHOL OPHT DROPS 15 ML BOTTLE EACHEYE PRN (12:30)
[2018-12-22] MEDS: ACETAMINOPHEN 325 MG TABLET PO PRN (12:30)
--- NOTE | 2018-12-22 12:48 | NUR ---
dR. ANTHONY HERE TO EXAMINE PT. EARLIER. pT. ON BI-PAP UNTIL 1130 A.M. PLACED ON 02 VIA N/C AT 6/LITERS PER MINUTE BT R.T.PT. ABLE TO SWALLOW MEDS. SLOWLY ONE AT A TIME WITH PUDDING.
--- NOTE | 2018-12-22 12:52 | NUR ---
DR. ANTHONY HERE EARLIER AND GAVE O.K. AND PERMISSION TO INSERT I.V. IN FOOT / LEG.I INSERTED @ 20 G. ANGIO. EASILY TO RT. PEDAL VEIN WITH GOOD BLOOD RETURN.
--- NOTE | 2018-12-22 14:11 | NUR ---
RADIOLOGY JUST CALLED ME AND STATED THAT THIS PT. CANT HAVE A C.T. SCAN OF ABDOMEN DUE TO HIS WEIGHT OF 450 LBS. I NOTIFIED THE CHARGE R.N. AND NURSING RELIEF DRILLER.
--- NOTE | 2018-12-22 15:50 | NUR ---
UNCONTROLLED ATRIAL FIB. TO RATE OF 150- S VIA PROVIDER NETWORK ANALYST. PT. SLEEPY. PLACED ON BI-PAP BY MYSELF AND R.T. CAME INTO ROOM TO MAKE SHURE BI-PAP WAS ON PROPERLY. SATURATION W.N.L. FOR THIS PT. HEART RATE TO 110 / MINUTE ALMOST IMMEDIATELY. V.S.S. PT. POOR APPETITE. ONLY SWALLOWING ONE TEASPOON AT A TIME SLOWLY. NO DIFFICULTY SWALLOWING. BROTHER CALLED HERE AND WANTED DOCTORS TO UPDATE HIM REGULARLY. I WILL PLACE A NOTE ON FRONT OF THE CHART FOR THE DOCTORS TO BE AWARE OF THIS.
--- NOTE | 2018-12-22 16:47 | NUR ---
PT. WAS GIVEN 30 M.E.Q. [place] I.V.P.B.AT 10 M.E.Q. PER HOUR VIA PUMP. PHARMACY WAS CALLED BY Larry PADILLA, TO SEND 3 MORES I.V.P.B. OF [place]
--- NOTE | 2018-12-22 19:30 | NUR ---
remains on bi-pap. saturation 88%. report to [facility].
--- NOTE | 2018-12-22 20:27 | NUR ---
INFORMED OF HR 150, STATES WILL PUT IN ORDERS.
[2018-12-22] MEDS ORDERED: DIGOXIN 500 MCG/2 ML AMP IV SCH (20:30)
[2018-12-22] MEDS ORDERED: DIGOXIN 500 MCG/2 ML AMP IV ONE (21:00)
[2018-12-23] VITALS (23 sets, daily range): BP systolic 86–124; BP diastolic 42–71
[2018-12-23] MEDS: CIPROFLOXACIN 0.3% OPHT DROP 2.5 ML BOTTLE RIGHTEYE SCH ×9 (03:08→17:03)
[2018-12-23] MEDS: DIGOXIN 500 MCG/2 ML AMP IV SCH ×3 (03:09→15:30)
[2018-12-23 05:54] LABS: BASOPHILS % (AUTO) 0.6 % (0.0-2.0); EOSINOPHILS # (AUTO) 0.1 K/uL (0.0-0.7); EOSINOPHILS % (AUTO) 1.5 % (0.0-7.0); HEMATOCRIT 40.6 % (36.7-47.1); LYMPHOCYTES # (AUTO) 1.3 K/uL (20.0-40.0); LYMPHOCYTES % (AUTO) 16.4 % (20.5-51.5); MEAN CORPUSCULAR HEMOGLOBIN 32.2 uug (23.8-33.4); MEAN CORPUSCULAR HGB CONC 32 g/dL (32.5-36.3); MONOCYTES # (AUTO) 1.4 K/uL (2.0-10.0); MONOCYTES % (AUTO) 18.1 % (0.0-11.0); NEUTROPHILS % (AUTO) 63.4 % (38.5-71.5); PLATELET COUNT (AUTO) 188 K/uL (152-348); RED BLOOD CELL COUNT(AUTO) 4.03 MIL/uL (4.06-5.63); WHITE BLOOD COUNT (AUTO) 7.9 K/uL (3.6-10.2)
[2018-12-23 06:10] LABS: BILIRUBIN,TOTAL 4.1 mg/dL (0.2-1.0); CREATININE 1.4 mg/dL (0.6-1.3); MAGNESIUM 2.3 mg/dL (1.8-2.4); PHOSPHOROUS 2.7 mg/dL (2.5-4.9); POTASSIUM 3.7 mmol/L (3.5-5.1)
[2018-12-23] MEDS: PANTOPRAZOLE SODIUM 40 MG TABLET.DR PO SCH ×2 (07:00→08:34)
[2018-12-23 07:24] LABS: EOSINOPHILS % (MANUAL) 1 % (0-8); LYMPHOCYTES % (MANUAL) 21 % (20-40); MONOCYTES % (MANUAL) 12 % (2-10); NEUTROPHILS % (MANUAL) 66 % (42-75)
[2018-12-23] MEDS: PROTEIN SUPPLEMENT (PROSTAT) 30 ML LIQUID PO SCH (08:00)
--- NOTE | 2018-12-23 08:00 | NUR ---
Pt. Awake alert and oriented x 4. Aspiration precaution implemented. Breakfast given by ENVIRONMENTAL EPIDEMIOLOGIST. Pt started coughing after feed. PT was able to swallow pills crushed with pudding. HELD toprol xl secondary to pt was given DIGoxin. 830 Pt desaturated to 62% with o2 @5 liters. Pt suctioned by RT and applied BIPAP. Will continue to monitor pt and attempt to get the ABG after bipap taken off.
[2018-12-23] MEDS: GABAPENTIN 300 MG CAPSULE PO SCH ×3 (08:34→16:32)
[2018-12-23] MEDS: ALLOPURINOL 100 MG TABLET PO SCH (08:34)
[2018-12-23] MEDS: TAMSULOSIN HCL 0.4 MG CAP.SR.24H PO SCH (08:34)
[2018-12-23] MEDS: FINASTERIDE 5 MG TABLET PO SCH (08:34)
[2018-12-23] MEDS: ACETAzolamide SODIUM 500 MG VIAL IV SCH (08:35)
[2018-12-23] MEDS: CLOTRIMAZOLE 1% CREAM 30 GM TUBE TOP SCH ×2 (08:54→16:32)
[2018-12-23] MEDS: CHOLECALCIFEROL 1,000 UNIT TABLET PO SCH (08:56)
[2018-12-23] MEDS: METOPROLOL SUCCINATE XL 50 MG TAB.SR.24H PO SCH (09:00)
--- NOTE | 2018-12-23 11:00 | NUR ---
ABG result and PCO2 of [address] Put pt back on bipap. Notified of pt had questionable aspiration during breakfast and pt not as awake as earlier. Will monitor pt. Addendum: 12/23/18 at 1617 by JOSE HINSON RN abg taken without BIPAP
[2018-12-23 11:31] LABS: ABG BASE EXCESS 13.5 mmol/L; ABG HCO3 44.6 mmol/L; ABG PCO2 93.1 mmHg (35.0-45.0); ABG PH 7.298 (7.350-7.450); ABG PO2 62.4 mmHg (75.0-100.0); ABG SITE RIGHT RADIAL; ABG TOTAL HEMOGLOBIN 14.4 G/dL (13.5-18.0); COHb 2.8 % (0.5-1.5); MetHb 0.3 % (0.0-1.5); O2Hb 86.2 % (94.0-97.0); VENT MODE Nasal Cannula
--- NOTE | 2018-12-23 12:30 | NUR ---
PT rectal temp of 102.7 Cooling measure applied. Tylenol suppository 650 given as ordered. 1315 Applied rectal probe with cooling blankets current temp 101.2 DR Ward as400 consultant here to see pt. ABG, LACTIC, Blood culture x2 ordered. Placed call to dr Sr and notified of pt's elevated temp and PCO2.
[2018-12-23 13:06] LABS: ABG BASE EXCESS 12.6 mmol/L; ABG PH 7.349 (7.350-7.450); ABG PO2 53.4 mmHg (75.0-100.0); ABG SITE RIGHT RADIAL; ABG TOTAL HEMOGLOBIN 14.3 G/dL (13.5-18.0); COHb 2.7 % (0.5-1.5); MetHb 0.2 % (0.0-1.5); O2Hb 81.6 % (94.0-97.0); VENT MODE BIPAP
[2018-12-23] MEDS ORDERED: IV DEXTROSE 5% 500 ML IV ONE (13:30)
[2018-12-23] MEDS: VANCOMYCIN IV 2,000 MG in IV DEXTROSE 5% 500 ML IV SCH (13:40)
--- NOTE | 2018-12-23 13:45 | NUR ---
Dr erazo here to see patient. New orders received and carried out. D/C iv on right foot catheter intact. MIDLINE PATENT on right brachial and left F/A. Current temp 100.8 pt still on cooling blanket.
[2018-12-23] MEDS ORDERED: METRONIDAZOLE 500 MG/NS 100ML 500 MG in PREMIXED 1 EACH IV SCH (14:00)
--- NOTE | 2018-12-23 14:04 | NUR ---
CLINICAL PHARMACY NOTE:VANCOMYCIN DOSING Request for vancomycin dosing on 68 y/o male 172.72cm 205kg for possible septic shock Temp 100.5F BUN 41 Scr 1.4 WBC 7.9 Start vancomycin 2gm ivpb q14h hours estimated trough 15.9. Will order vancomycin trough level prior to 4th dose. Will continue to monitor.
--- NOTE | 2018-12-23 15:00 | NUR ---
Temp 99.7. Cooling measures and cooling blanket effective. Will give report to receiving nurse of ICU.
--- NOTE | 2018-12-23 15:46 | NUR ---
Fransisco (brother) notified of transfer to ICU
[2018-12-23] MEDS ORDERED: LEVOFLOXACIN 750MG/D5W 750 MG in PREMIXED 1 EACH IV SCH (16:00)
--- NOTE | 2018-12-23 16:22 | NUR ---
Transferred pt to CCU-1 with RT, RN, and Commercial Roofing Estimator. Pt stable and nad noted upon transfer.
--- NOTE | 2018-12-23 16:41 | NUR ---
Full telephone SBAR report received by RN [place] 3rd floor.
--- NOTE | 2018-12-23 17:25 | NUR ---
At 1720, pt noted to be saturating SpO2 78% and unresponsive. ER doctor called to intubate. At 1725, pt intubated ETT 7.5, 23cm at lip with vent settings as follows: AC-20, TV-600ml, 100% FiO2, PEEP-5. Stat CXR ordered. Awaiting results. Pt stable and nad noted upon intubation.
[2018-12-23] MEDS: PROPOFOL 100 ML IV PRN (17:40)
--- NOTE | 2018-12-23 18:15 | NUR ---
CALLED TO CCU FOR PATIENT INTUBATION DUE TO LOW 02 SATURATION AND UNRESPONSIVENESS. AT 1725 PATIENT WAS INTUBATED WITH AN ETT SIZE 7.5, SECURED WITH TAPE AT APPROXIMATELY 23CM AT THE LIP. NO COMPLICATION DURING INTUBATION. AMBUBAG AT BEDSIDE. SPO2 >90%. PT ON PB840 VENT WITH SETTINGS OF AC 20, VT 600, +5, 100% FiO2. SX'D SMALL, THICK, PALE YELLOW SECRETIONS. VENT IS PLUGGED INTO RED EMERGENCY OUTLET. VENT ALARMS ARE ON AND AUDIBLE. WILL CONTINUE TO MONITOR PATIENT.
[2018-12-23 19:23] LABS: ABG BASE EXCESS 15.5 mmol/L; ABG HCO3 42.4 mmol/L; ABG PCO2 60.9 mmHg (35.0-45.0); ABG PH 7.461 (7.350-7.450); ABG PO2 72.5 mmHg (75.0-100.0); ABG SITE LEFT RADIAL; ABG TOTAL HEMOGLOBIN 14.2 G/dL (13.5-18.0); COHb 2.6 % (0.5-1.5); MetHb 0.1 % (0.0-1.5); O2Hb 93.2 % (94.0-97.0); VENT MODE VENT - A/C; VT, ABG 600 mL
--- NOTE | 2018-12-23 19:30 | NUR ---
REC'D PT FROM OFF-GOING NURSE INITIAL ASSESSMENT DONE PT IS ON A VENT VIA ETTUBE, SETTING AC 20 TV 600 FIO2 100% PEEP 5 HOB ELEVATED AND ASP PRECAUTION MAINTAINED WAS SUCTION BY RT BLOOD AND CLOTS NOTED SAT REMAINS 100% ORAL CARE GIVEN OVERALL APPEARANCES OBESE AND ANASARA IS RESPONSIVE TO TOUCH BUT LETHARGIC IS ON DIPRIVAN @ 5 MCG/KG/MINS AFIB ON THE MONITOR IS AFREBILE TEMP 97.5 IS ON A COOLING BLANKET S/P TEMP 102.7 ON DAYS COMFORT AND SAFETY MAINTAINED
[2018-12-23] MEDS ORDERED: NOREPINEPHRINE BITARTRATE 16 MG in IV DEXTROSE 5% 500 ML IV PRN (19:45)
--- NOTE | 2018-12-23 20:30 | NUR ---
ORAL GASTRIC TUBE PLACED PER MD ORDER ELIOT WELL XRAY DONE AND VERIFIED PLACEMENT NO NEW ORAL FOR NOTED
[2018-12-23] MEDS: MEROPENEM 1 G in IV NORMAL SALINE 100 ML IV SCH (22:27)
[2018-12-24] VITALS (53 sets, daily range): BP systolic 75–125; BP diastolic 30–86
--- NOTE | 2018-12-24 00:30 | NUR ---
MICHAEL WADDELL NOTIFIED R/T PT HR IN THE 40-50'S WITH SOME PVC'S AT TIME WAS MADE AWARE PT IS AFIB ON THE MONITOR AND WAS GIVEN DIG. ON DAYSHIFT THREE DOSES FOR HR 130'S PLUS PT HAS A TEMP 102.7 ON DAYS ALSO PER SATNAM THE OFF-GOING NURSE NO NEW ORDERS
--- NOTE | 2018-12-24 01:23 | NUR ---
RECEIVED PATIENT IN CCU, INTUBATED ON A VENTILATOR. PATIENT HAS A SIZE 7.5 ET TUBE AND IT IS SECURED WITH AN ANCHOR FAST AT APPROXIMATELY 23 CM AT THE LIP LINE. SUCTIONED A MODERATE AMOUNT OF BLOODY SECRETIONS. HME CHANGED. ORAL CARE DONE. AMBU BAG IS BY BEDSIDE. PATIENT IS ON THE FOLLOWING SETTINGS THAT ARE CHARTED ON THE MECHANICAL VENTILATOR NOTES. VENT IS PLUGGED IN THE RED EMERGENCY OUTLET. VENT ALARMS ARE ON AND AUDIBLE. WILL CONTINUE TO MONITOR PATIENT.
[2018-12-24] MEDS: VANCOMYCIN IV 2,000 MG in IV DEXTROSE 5% 500 ML IV SCH ×2 (03:15→15:45)
[2018-12-24] MEDS: PROPOFOL 100 ML IV PRN ×3 (04:37→22:17)
[2018-12-24 05:08] LABS: BILIRUBIN,TOTAL 5.4 mg/dL (0.2-1.0); CREATININE 1.2 mg/dL (0.6-1.3); DIGOXIN 1.1 ng/mL (0.9-2.0); MAGNESIUM 2.2 mg/dL (1.8-2.4); PHOSPHOROUS 1.3 mg/dL (2.5-4.9); TOTAL PROTEIN, SERUM 6.7 g/dL (6.4-8.2)
[2018-12-24 05:20] LABS: POTASSIUM 2.7 mmol/L (3.5-5.1)
[2018-12-24] MEDS: MEROPENEM 1 G in IV NORMAL SALINE 100 ML IV SCH ×3 (05:55→21:33)
[2018-12-24 06:01] LABS: BASOPHILS % (AUTO) 0.6 % (0.0-2.0); EOSINOPHILS # (AUTO) 0.2 K/uL (0.0-0.7); EOSINOPHILS % (AUTO) 2.1 % (0.0-7.0); HEMATOCRIT 41.4 % (36.7-47.1); HEMOGLOBIN 13.1 g/dL (12.5-16.3); LYMPHOCYTES # (AUTO) 0.9 K/uL (20.0-40.0); LYMPHOCYTES % (AUTO) 10.6 % (20.5-51.5); MEAN CORPUSCULAR HEMOGLOBIN 32.4 uug (23.8-33.4); MEAN CORPUSCULAR HGB CONC 32 g/dL (32.5-36.3); MEAN CORPUSCULAR VOLUME 102.2 fL (73.0-96.2); MONOCYTES # (AUTO) 0.9 K/uL (2.0-10.0); MONOCYTES % (AUTO) 11.3 % (0.0-11.0); NEUTROPHILS # (AUTO) 6.3 K/uL (1.8-8.9); NEUTROPHILS % (AUTO) 75.4 % (38.5-71.5); PLATELET COUNT (AUTO) 150 K/uL (152-348); RED BLOOD CELL COUNT(AUTO) 4.05 MIL/uL (4.06-5.63); WHITE BLOOD COUNT (AUTO) 8.3 K/uL (3.6-10.2)
--- NOTE | 2018-12-24 07:00 | NUR ---
RECEIVED PT ORALLY INTUBATED WITH A 7.5 ETT APPROXIMATELY 23CM AT THE LIP. ETT IS PATENT AND SECURED VIA ANCHOR FAST. REFER TO RESPIRATORY VENT COMPLEX CHARTING FOR VENT SETTINGS. VENT ALARMS CHECKED, ARE ON AND AUDIBLE. AMBU BAG IS AT BEDSIDE. ORAL CARE DONE. SUCTIONED SMALL AMOUNT OF BLOOD-TINGED SECRETIONS. AMBU BAG IS AT BEDSIDE. ABG @ 0900. WILL CONTINUE TO MONITOR.
[2018-12-24] MEDS: POTASSIUM CHLORIDE 50 ML IV SCH ×4 (07:01→10:03)
[2018-12-24] MEDS: PROTEIN SUPPLEMENT (PROSTAT) 30 ML LIQUID PO SCH (08:32)
[2018-12-24] MEDS: METOPROLOL SUCCINATE XL 50 MG TAB.SR.24H PO SCH (08:35)
[2018-12-24] MEDS: ALLOPURINOL 100 MG TABLET PO SCH (08:36)
[2018-12-24] MEDS: FINASTERIDE 5 MG TABLET PO SCH (08:36)
[2018-12-24] MEDS: TAMSULOSIN HCL 0.4 MG CAP.SR.24H PO SCH (08:36)
[2018-12-24] MEDS: GABAPENTIN 300 MG CAPSULE PO SCH ×3 (08:36→16:08)
--- NOTE | 2018-12-24 09:00 | NUR ---
0900 toprol held for HR 40-50/min Addendum: 12/24/18 at 1825 by LISA HENDERSON RN Amended: Links added.
[2018-12-24 09:06] LABS: ABG BASE EXCESS 14.9 mmol/L; ABG HCO3 39.8 mmol/L; ABG PCO2 48.6 mmHg (35.0-45.0); ABG PH 7.531 (7.350-7.450); ABG SITE LEFT RADIAL; ABG TOTAL HEMOGLOBIN 14.8 G/dL (13.5-18.0); MetHb 0.1 % (0.0-1.5); O2Hb 97.1 % (94.0-97.0); VENT MODE VENT - A/C; VT, ABG 600 mL
[2018-12-24] MEDS: CLOTRIMAZOLE 1% CREAM 30 GM TUBE TOP SCH ×2 (10:20→16:16)
--- NOTE | 2018-12-24 10:30 | NUR ---
seen by Dr Adelson. caro received Addendum: 12/24/18 at 1320 by LISA HENDERSON RN Amended: Links added.
[2018-12-24 12:08] LABS: *BLOOD, URINE 2+ (NEGATIVE); *CLARITY,URINE CLOUDY (CLEAR); *COLOR,URINE DARK YELLOW (YELLOW); *KETONES,URINE NEGATIVE (NEGATIVE); *UROBILINOGEN,URINE >=8.0 E.U./dl (NORMAL); LEUKOCYTE ESTERASE ,URINE 3+ (NEGATIVE); NITRITE, URINE NEGATIVE (NEGATIVE); PH,URINE >=9.0 (5.0-8.0); UGLUCOSE TRACE (NEGATIVE)
[2018-12-24] MEDS: CIPROFLOXACIN 0.3% OPHT DROP 2.5 ML BOTTLE RIGHTEYE SCH ×3 (12:23→20:09)
[2018-12-24 12:27] LABS: *BILIRUBIN,URIN 1+ (NEGATIVE)
[2018-12-24 12:32] LABS: RBC,URINE 80-100 /HPF (0-3)
[2018-12-24 12:45] LABS: BACTERIA,URINE MANY /HPF (NONE SEEN)
[2018-12-24 12:47] LABS: SQUAMOUS EPITHELIAL CELL,UR MODERATE /HPF (NONE SEEN)
[2018-12-24 12:50] LABS: TRIPLE PHOSPHATE CRYSTAL,UR FEW /HPF (NONE SEEN)
--- NOTE | 2018-12-24 13:52 | NUR ---
CLINICAL PHARMACY NOTE:VANCOMYCIN DOSING S To continue vancomycin dosing on 68 y/o male patient for possible septic shock O Temp 97.5F BUN 42 Scr 1.2 WBC 8.3 ht 172.7 cm wt 205 kg Plan Since srcr has decreased, will change vanco dose to vancomycin 2gm ivpb q10h hours estimated trough 15 mcg/ml. 1st dose today at 1500. Will order vancomycin trough level prior to 4th dose (not yet order). Will continue to monitor.
[2018-12-24] MEDS ORDERED: NEUTRA PHOS PACKET PO ONE (15:30)
--- NOTE | 2018-12-24 16:00 | NUR ---
talked to dr Livier price pts condition. orders received. will insert PICC line and will start tube fdg Addendum: 12/24/18 at 1642 by LISA HENDERSON RN Amended: Links added. Addendum: 12/24/18 at 1643 by LISA HENDERSON RN Amended: Links added.
--- NOTE | 2018-12-24 17:00 | NUR ---
right upper arm Mid line site is swollen. 2 IV sites inserted via left arm while waiting for PICC line insertion Addendum: 12/24/18 at 1922 by LISA HENDERSON RN Amended: Links added.
--- NOTE | 2018-12-24 18:00 | NUR ---
Orestes joelle PIC inserted a new PICC line via left upper arm. position confirmed by xray and IV fluids infused via PICC Addendum: 12/24/18 at 1919 by LISA HENDERSON RN Amended: Links added. Addendum: 12/24/18 at 1922 by LISA HENDERSON RN Amended: Links added.
[2018-12-24] MEDS: VITAL AF 1.2 1,000 ML LIQUID GT PRN (18:55)
--- NOTE | 2018-12-24 19:23 | NUR ---
Shift report given to Ward RN Addendum: 12/24/18 at 1924 by LISA HENDERSON RN Amended: Links added.
[2018-12-24] MEDS ORDERED: HEPARIN SODIUM,PORCINE/PF 100 UNIT/ML, 5ML SYR IV PRN (19:30)
[2018-12-24] MEDS ORDERED: NORMAL SALINE FLUSH 10 ML DISP.SYRIN IV PRN (19:30)
--- NOTE | 2018-12-24 19:45 | NUR ---
RECEIVED PT ORALLY INTUBATED ETT 7.5 SECURED AT 23 CM LIP LINE VIA ANCHOR FAST. VENT SETTINGS AC 20 VT 600 PEEP 5 FIO2 100%. SUCTION LAVAGE PRN SMALL AMOUNT BLOOD TINGED SECRETIONS. ETT REPOSITIONED TO LEFT SIDE. AMBU BAG AT BEDSIDE. VENT CHECKED, ALARMS WORKING WELL AND AUDIBLE. NO DISTRESS NOTED AT THIS TIME. WILL CONTINUE TO MONITOR.
[2018-12-24] MEDS: NOREPINEPHRINE BITARTRATE 16 MG in IV DEXTROSE 5% 500 ML IV PRN (20:01)
[2018-12-24] MEDS: NORMAL SALINE FLUSH 10 ML DISP.SYRIN IV SCH (20:24)
[2018-12-24] MEDS: IV NORMAL SALINE 250 ML IV PRN (20:33)
[2018-12-25] VITALS (95 sets, daily range): BP systolic 77–136; BP diastolic 36–79
--- NOTE | 2018-12-25 00:01 | NUR ---
Sedation Vacation: nods head approp. yes & no.
[2018-12-25] MEDS: CIPROFLOXACIN 0.3% OPHT DROP 2.5 ML BOTTLE RIGHTEYE SCH ×7 (00:31→23:48)
[2018-12-25] MEDS: VANCOMYCIN IV 2,000 MG in IV DEXTROSE 5% 500 ML IV SCH ×3 (00:32→21:00)
[2018-12-25] MEDS: PROPOFOL 100 ML IV PRN ×3 (04:37→18:18)
[2018-12-25 05:15] LABS: CREATININE 1.3 mg/dL (0.6-1.3); MAGNESIUM 1.9 mg/dL (1.8-2.4); PHOSPHOROUS 1.6 mg/dL (2.5-4.9); POTASSIUM 3.1 mmol/L (3.5-5.1)
[2018-12-25] MEDS: MEROPENEM 1 G in IV NORMAL SALINE 100 ML IV SCH ×3 (05:32→23:04)
[2018-12-25 05:37] LABS: BASOPHILS # (AUTO) 0.1 K/uL (0.0-8.0); BASOPHILS % (AUTO) 0.7 % (0.0-2.0); EOSINOPHILS # (AUTO) 0.4 K/uL (0.0-0.7); EOSINOPHILS % (AUTO) 3.5 % (0.0-7.0); HEMATOCRIT 43.1 % (36.7-47.1); HEMOGLOBIN 13.9 g/dL (12.5-16.3); LYMPHOCYTES # (AUTO) 1.6 K/uL (20.0-40.0); MEAN CORPUSCULAR HEMOGLOBIN 32.7 uug (23.8-33.4); MEAN CORPUSCULAR HGB CONC 32 g/dL (32.5-36.3); MEAN CORPUSCULAR VOLUME 101.3 fL (73.0-96.2); MONOCYTES # (AUTO) 1.7 K/uL (2.0-10.0); MONOCYTES % (AUTO) 15.7 % (0.0-11.0); NEUTROPHILS # (AUTO) 7.1 K/uL (1.8-8.9); NEUTROPHILS % (AUTO) 65.1 % (38.5-71.5); PLATELET COUNT (AUTO) 167 K/uL (152-348); RED BLOOD CELL COUNT(AUTO) 4.25 MIL/uL (4.06-5.63); WHITE BLOOD COUNT (AUTO) 10.9 K/uL (3.6-10.2)
[2018-12-25 06:05] LABS: EOSINOPHILS % (MANUAL) 2 % (0-8); LYMPHOCYTES % (MANUAL) 13 % (20-40); MONOCYTES % (MANUAL) 9 % (2-10); NEUTROPHILS % (MANUAL) 76 % (42-75)
[2018-12-25] MEDS: PANTOPRAZOLE SODIUM 40 MG TABLET.DR PO SCH (07:01)
--- NOTE | 2018-12-25 07:15 | NUR ---
PATIENT RECEIVED ORALLY INTUBATED WITH A SIZE 7.5 ETT, SECURED AT APPROXIMATELY 23CM AT THE LIP. PATIENT IS ON A VENT WITH SETTINGS OF AC20, VT600, +5, 100% FIO2. AMBUBAG AT PATIENT BEDSIDE. VENT IS PLUGGED INTO RED EMERGENCY OUTLET. B/S RHONCHI BILATERALLY. NO SOB NOTED. PATIENT TOLERATING VENT SETTINGS WELL. ORAL CARE DONE. SUCTIONED SMALL, THICK, PALE YELLOW/BLOODY SECRETIONS. PATIENT TO BE SUCTIONED PRN AND MONITORED, WILL REPORT ANY CHANGES.
--- NOTE | 2018-12-25 07:30 | NUR ---
report received from Ward SHAVER. Patient was admitted on 12/14/18 to [facility] for shortness of breath and CHF. Markedly obese 68 yr old male. Was on BIPAP mask for several days till 12/23/18. Here in ICU as ICU patient. was orally intubated to vent fio2 100%, tv 600, peep 5cm and ac 20. patient is ,mildly sedated on Propofol drip. also on levophed drip at 5 mcg/kg/min to keep sbp >90. has IV NS tko for antibiotics. garay catheter is securely taped with deflated balloon. urine is draining but also leaking around catheter.[facility]. and is being automatically turning from sides to sides [id number]. ekg is atrial fib HR 90/min. with rare to frequent pvcs Addendum: 12/25/18 at 0748 by LISA HENDERSON RN Amended: Links added.
--- NOTE | 2018-12-25 07:34 | NUR ---
DECREASED FIO2 FROM 100% TO 90% PRIOR TO ABG. PATIENT TOLERATING CHANGE WELL, SPO2 BETWEEN 94-96%. WILL CONTINUE TO MONITOR.
--- NOTE | 2018-12-25 07:35 | NUR ---
fio2 titrated down to 90%. O2 sat maintained at 94-96% Addendum: 12/25/18 at 0750 by LISA HENDERSON RN Amended: Links added. Addendum: 12/25/18 at 0752 by LISA HENDERSON RN Amended: Links added.
--- NOTE | 2018-12-25 07:40 | NUR ---
levophed drip titrated up to keep sbp >90. now at 8mcg/kg min with bp 95/45 Addendum: 12/25/18 at 0752 by LISA HENDERSON RN Amended: Links added.
[2018-12-25] MEDS: FINASTERIDE 5 MG TABLET PO SCH (08:00)
[2018-12-25] MEDS: PROTEIN SUPPLEMENT (PROSTAT) 30 ML LIQUID PO SCH (08:00)
--- NOTE | 2018-12-25 08:00 | NUR ---
temp 101. given tylenol via OGT and cooling blanket applied. Addendum: 12/25/18 at 0840 by LISA HENDERSON RN Amended: Links added. Addendum: 12/25/18 at 0845 by LISA HENDERSON RN Amended: Links added.
[2018-12-25] MEDS: TAMSULOSIN HCL 0.4 MG CAP.SR.24H PO SCH (08:01)
[2018-12-25] MEDS: ACETAMINOPHEN 325 MG TABLET PO PRN ×2 (08:01→12:28)
[2018-12-25] MEDS: ALLOPURINOL 100 MG TABLET PO SCH (08:01)
[2018-12-25] MEDS: METOPROLOL SUCCINATE XL 50 MG TAB.SR.24H PO SCH (08:02)
[2018-12-25] MEDS: GABAPENTIN 300 MG CAPSULE PO SCH ×3 (08:02→15:28)
[2018-12-25] MEDS: IV NORMAL SALINE 250 ML IV PRN (08:03)
[2018-12-25] MEDS: CLOTRIMAZOLE 1% CREAM 30 GM TUBE TOP SCH ×2 (08:05→15:29)
--- NOTE | 2018-12-25 08:05 | NUR ---
sedation vacation done, follows commands but was tachypneic 30-34/min Addendum: 12/25/18 at 0845 by LISA HENDERSON RN Amended: Links added.
[2018-12-25] MEDS: NORMAL SALINE FLUSH 10 ML DISP.SYRIN IV SCH ×2 (08:06→20:23)
[2018-12-25 08:59] LABS: ABG BASE EXCESS 11.3 mmol/L; ABG HCO3 36.9 mmol/L; ABG PCO2 51.1 mmHg (35.0-45.0); ABG PH 7.476 (7.350-7.450); ABG PO2 84.4 mmHg (75.0-100.0); ABG SITE LEFT RADIAL; ABG TOTAL HEMOGLOBIN 15.1 G/dL (13.5-18.0); COHb 2.2 % (0.5-1.5); MetHb 0.3 % (0.0-1.5); O2Hb 94.7 % (94.0-97.0); VENT MODE VENT - A/C; VT, ABG 600 mL
[2018-12-25] MEDS: VITAL AF 1.2 1,000 ML LIQUID GT PRN (09:10)
--- NOTE | 2018-12-25 09:58 | NUR ---
francie care done for urinary incontinence despite garay catheter. urine leaking around catheter. note: patient has urethral constriction. [facility]ay [facility] in with deflated balloon. patient was turned with help from PT and RT. Addendum: 12/25/18 at 0959 by LISA HENDERSON RN Amended: Links added.
[2018-12-25] MEDS ORDERED: PHENYLEPHRINE IV 40 MG in IV DEXTROSE 5% 250 ML IV PRN (11:15)
--- NOTE | 2018-12-25 12:00 | NUR ---
tylenol given for fever 101.2. cooling blanket continuous Addendum: 12/25/18 at 1327 by LISA HENDERSON RN Amended: Links added. Addendum: 12/25/18 at 1328 by LISA HENDERSON RN Amended: Links added.
[2018-12-25] MEDS: POTASSIUM CHLORIDE 50 ML IV SCH ×4 (12:28→15:27)
--- NOTE | 2018-12-25 12:30 | NUR ---
k replacemnets started 10meq kcl times 4 bags startd for k3.1 Addendum: 12/25/18 at 1326 by LISA HENDERSON RN Amended: Links added. Addendum: 12/25/18 at 1326 by LISA HENDERSON RN Amended: Links added.
--- NOTE | 2018-12-25 12:45 | NUR ---
CLINICAL PHARMACY NOTE:VANCOMYCIN DOSING S To continue vancomycin dosing on 68 y/o male patient for possible septic shock O Temp 97.8F BUN 39 Scr 1.3 WBC 10.9 ht 172.7 cm wt 205 kg Plan Will continue same dose of vancomycin 2gm ivpb q10h hours for today. Will order vancomycin trough level prior to 4th dose ( ordered for today at 2029). Pharmacy shall review the level & adjust the dose if needed. Will continue to monitor.
--- NOTE | 2018-12-25 13:38 | NUR ---
INCREASED PEEP FROM 5 TO 8, PER MD ORDER.
--- NOTE | 2018-12-25 14:00 | NUR ---
turned from sids to side with 4 staff persons. pericre done , back care done. cooling blanket applied to bottom and top of the patient for fever. garay catheter came out. patient incontinent Addendum: 12/25/18 at 1425 by LISA HENDERSON RN Amended: Links added. Addendum: 12/25/18 at 1425 by LISA HENDERSON RN Amended: Links added.
--- NOTE | 2018-12-25 14:30 | NUR ---
seen by dr Sam, condition report given. orders received to dc toprol xl and hold coumadin till patient extubated and off pressors. pharmacy aware. Addendum: 12/25/18 at 1450 by LISA HENDERSON RN Amended: Links added.
--- NOTE | 2018-12-25 15:00 | NUR ---
seen by CHAZ Perez, orders received. will statr on fluconozole IV Addendum: 12/25/18 at 1706 by LISA HENDERSON RN Amended: Links added.
[2018-12-25] MEDS ORDERED: NEUTRA PHOS PACKET PO ONE (15:30)
[2018-12-25] MEDS ORDERED: DOSING BY PHARMACY-MD TO SPECIFY MED/ROUTE XX SCH (16:15)
--- NOTE | 2018-12-25 17:30 | NUR ---
francie care done and linen change. with 4 people assisting to turn patient. .continues to be on cooling mattress. temp 100 rectally Addendum: 12/25/18 at 1833 by LISA HENDERSON RN Amended: Links added.
[2018-12-25] MEDS: FLUCONAZOLE 400MG /NS 200ML IV 400 MG in PREMIXED 1 EACH IV SCH (17:41)
--- NOTE | 2018-12-25 19:12 | NUR ---
Patient endorsed on AC 20, Vt600, +8 peep, 90% FiO2. He is orally intubated with a 7.5 Ettube, ~23cm lipline. No signs of respiratory distress noted at this time. Ettube location changed throughout shift. Oral care rendered. Airway patent and secure. Alarm parameters assessed and are on/audible. Will continue to monitor throughout shift.
--- NOTE | 2018-12-25 19:19 | NUR ---
report given to Chris Addendum: 12/25/18 at 1919 by LISA HENDERSON RN Amended: Links added.
--- NOTE | 2018-12-25 20:00 | NUR ---
REC'D REPORT FROM OFF GOING NURSE INTIAL ASSESSMENT DONE PT ON DIPRIVAN DRIP DECREASED TO 5MCG PT MORE RESPONSIVE BUT CONFUSED HAS A ETTUBE VIA VENT VENT SETTING AC 20 FI02 90% TV 600 PEEP8 HOB ELEVATED ASP PREC MAINTAINED HOB ELEVATED LS COARSE WAS SUCT FOR SM THICK BROWN SECRETION ORAL CARE GIVEN SATING 98% HAS AN OGTUBE VIA VITAL TF @ 40ML/HR CK RESIDUAL ZERO INC TO 50ML/HR BS POS IN ALL FOUR QUAD ABD OBESE AND HARD WEARING A DIAPER OVERALL APPEARANCES OBESE BUT CONDITION GUARD IS ON A COOLING PAD TEMP 99.1 BLE'S EDEMA HARD ELEVATED ON PILLOW RLL HAS A MEDIPLEX ON IT R/T SKIN TEAR PT HAS A ANTONELLA PICC TRIPLE LUMENS LINE REC'ING DIPRIVAN WHICH WAS DECREASED FROM 10MCG TO 5 MCG O LEVOPHED 16 MCG WHICH WAS DECREASED TO 10MCG MAP MAINTAINED IN THE 60 ORDERED ALSO REC'ING DIFLUCAN IVPB ON THE MONITOR PT IS AFIB WITH FREQ PVC WAS TOLD MD AWARE AND PT CAN BE CHANGED TO NEOSYNEPHRINE PRN COMFORT AND SAFETY MAINTAINED TEACHING REINFORCED REORIENTED PT TO HIS ENVIRONMENT, PLAN OF CARE AND COMFORT AND SAFETY.
--- NOTE | 2018-12-25 21:00 | NUR ---
PT DIDN'T REC'D VANCO BECAUSE LEVEL WAS 38.2
--- NOTE | 2018-12-25 21:30 | NUR ---
UROLOGIST IN TO PLACE BURG[facility] CATH IN PT UNSUCCESSFUL PT ELIOT PROCEDURE FAIRLY WELL
[2018-12-26] VITALS (94 sets, daily range): BP systolic 85–131; BP diastolic 33–90
--- NOTE | 2018-12-26 | NUR ---
Titrated FiO2 to 85%. No complications noted. SIVAKUMAR Rose informed. Patient tolerating change well.
[2018-12-26] MEDS: CIPROFLOXACIN 0.3% OPHT DROP 2.5 ML BOTTLE RIGHTEYE SCH ×6 (03:52→23:19)
[2018-12-26 05:26] LABS: BASOPHILS # (AUTO) 0.1 K/uL (0.0-8.0); BASOPHILS % (AUTO) 0.8 % (0.0-2.0); EOSINOPHILS # (AUTO) 0.2 K/uL (0.0-0.7); EOSINOPHILS % (AUTO) 2.7 % (0.0-7.0); HEMATOCRIT 41.3 % (36.7-47.1); HEMOGLOBIN 13.3 g/dL (12.5-16.3); LYMPHOCYTES # (AUTO) 1.3 K/uL (20.0-40.0); LYMPHOCYTES % (AUTO) 15.3 % (20.5-51.5); MEAN CORPUSCULAR HEMOGLOBIN 32.7 uug (23.8-33.4); MEAN CORPUSCULAR HGB CONC 32 g/dL (32.5-36.3); MEAN CORPUSCULAR VOLUME 101.4 fL (73.0-96.2); MONOCYTES # (AUTO) 1.3 K/uL (2.0-10.0); MONOCYTES % (AUTO) 14.6 % (0.0-11.0); NEUTROPHILS # (AUTO) 5.8 K/uL (1.8-8.9); NEUTROPHILS % (AUTO) 66.6 % (38.5-71.5); PLATELET COUNT (AUTO) 164 K/uL (152-348); RED BLOOD CELL COUNT(AUTO) 4.07 MIL/uL (4.06-5.63); WHITE BLOOD COUNT (AUTO) 8.7 K/uL (3.6-10.2)
[2018-12-26 05:29] LABS: CREATININE 1.2 mg/dL (0.6-1.3); PHOSPHOROUS 2.5 mg/dL (2.5-4.9); POTASSIUM 3.2 mmol/L (3.5-5.1)
[2018-12-26] MEDS: PANTOPRAZOLE SODIUM 40 MG TABLET.DR PO SCH (05:49)
[2018-12-26] MEDS: MEROPENEM 1 G in IV NORMAL SALINE 100 ML IV SCH ×3 (05:49→21:41)
[2018-12-26] MEDS: NOREPINEPHRINE BITARTRATE 16 MG in IV DEXTROSE 5% 500 ML IV PRN ×2 (07:00→20:20)
[2018-12-26] MEDS: VANCOMYCIN IV 2,000 MG in IV DEXTROSE 5% 500 ML IV SCH (07:00)
--- NOTE | 2018-12-26 07:00 | NUR ---
report given to SIVAKUMAR Khalil all questions answered pt condition remains stable without incident
[2018-12-26] MEDS: PROTEIN SUPPLEMENT (PROSTAT) 30 ML LIQUID PO SCH (08:09)
[2018-12-26] MEDS: NORMAL SALINE FLUSH 10 ML DISP.SYRIN IV SCH ×2 (08:11→20:23)
[2018-12-26] MEDS: ALLOPURINOL 100 MG TABLET PO SCH (08:11)
[2018-12-26] MEDS: TAMSULOSIN HCL 0.4 MG CAP.SR.24H PO SCH (08:11)
[2018-12-26] MEDS: GABAPENTIN 300 MG CAPSULE PO SCH ×3 (08:11→17:13)
[2018-12-26] MEDS: FINASTERIDE 5 MG TABLET PO SCH (08:11)
[2018-12-26] MEDS: CLOTRIMAZOLE 1% CREAM 30 GM TUBE TOP SCH ×2 (08:11→17:13)
[2018-12-26] MEDS: ACETAMINOPHEN 325 MG TABLET PO PRN (08:19)
[2018-12-26 08:40] LABS: ABG BASE EXCESS 10.5 mmol/L; ABG HCO3 35.9 mmol/L; ABG PCO2 50.6 mmHg (35.0-45.0); ABG PH 7.469 (7.350-7.450); ABG PO2 98.3 mmHg (75.0-100.0); ABG SITE LEFT RADIAL; COHb 1.6 % (0.5-1.5); MetHb 0.1 % (0.0-1.5); O2Hb 96.6 % (94.0-97.0); VENT MODE VENT - A/C; VT, ABG 600 mL
[2018-12-26] MEDS: PROPOFOL 100 ML IV PRN (09:00)
--- NOTE | 2018-12-26 10:15 | NUR ---
CLINICAL PHARMACY NOTE:VANCOMYCIN DOSING S To continue vancomycin dosing on 68 y/o male patient for possible septic shock O Temp 97.8F BUN 42 Scr 1.2 WBC 8.7 ht 172.7 cm wt 205 kg Trough 12/25 @2029: 38.2 Random pending today 1500 Plan As trough supratherapeutic, regimen 2gm q10h d/c'd and will dose per level for now. Random due today at 1500. Will check and re-dose as needed. Will follow Addendum: 12/26/18 at 1529 by KHOA ZAMARRIPA ADM RANDOM LEVEL AT 1500 22.6, NO DOSE FOR TODAY. NEXT RANDOM WITH AM LABS TOMORROW. WILL CHECK AND DOSE NEEDED. WILL FOLLOW
[2018-12-26] MEDS: POTASSIUM CHLORIDE 50 ML IV SCH ×2 (11:13→12:37)
[2018-12-26] MEDS: MORPHINE SULFATE 4 MG/1 ML DISP.SYRIN IV PRN (14:33)
[2018-12-26] MEDS ORDERED: COUMADIN VARIABLE DOSE REMINDE XX SCH (17:00)
[2018-12-26] MEDS: FLUCONAZOLE 400MG /NS 200ML IV 400 MG in PREMIXED 1 EACH IV SCH (17:12)
[2018-12-27] VITALS (95 sets, daily range): BP systolic 85–127; BP diastolic 41–91
--- NOTE | 2018-12-27 00:56 | NUR ---
PT ON CONT VÁZQUEZ VENT WITH 7.5 ET/TUBE IN PLACE AND SECURED, WITH CURRENT VENT SETTINGS, A/C 20, VT 600ML, PEEP 8, 85%, PT DOES ASSIST AT TIMES, SUCTIONED LIGHT PALE YELL TINGE SECRETIONS, SUCTION MOUTH WITH TOM, TOLL WELL, CHANGE HME, CHECK CUFF, ORAL CARE DONE, NO VENT CHANGES MADE, ALL VENT ALARMS GOOD, AMBU BAG AT BEDSIDE, PT STABLE. Cruz RAYGOZAP Addendum: 12/27/18 at 0059 by YARIEL TRIPATHI RT Amended: Links added.
[2018-12-27] MEDS: PROPOFOL 100 ML IV PRN ×2 (01:36→06:04)
[2018-12-27] MEDS: CIPROFLOXACIN 0.3% OPHT DROP 2.5 ML BOTTLE RIGHTEYE SCH ×6 (03:58→23:17)
[2018-12-27 04:57] LABS: BASOPHILS # (AUTO) 0.1 K/uL (0.0-8.0); BASOPHILS % (AUTO) 0.6 % (0.0-2.0); EOSINOPHILS # (AUTO) 0.2 K/uL (0.0-0.7); EOSINOPHILS % (AUTO) 2.3 % (0.0-7.0); HEMATOCRIT 40.8 % (36.7-47.1); LYMPHOCYTES # (AUTO) 1.3 K/uL (20.0-40.0); LYMPHOCYTES % (AUTO) 15.2 % (20.5-51.5); MEAN CORPUSCULAR HEMOGLOBIN 32.5 uug (23.8-33.4); MEAN CORPUSCULAR HGB CONC 32 g/dL (32.5-36.3); MEAN CORPUSCULAR VOLUME 102.2 fL (73.0-96.2); MONOCYTES # (AUTO) 1.6 K/uL (2.0-10.0); NEUTROPHILS # (AUTO) 5.6 K/uL (1.8-8.9); NEUTROPHILS % (AUTO) 63.9 % (38.5-71.5); PLATELET COUNT (AUTO) 159 K/uL (152-348); WHITE BLOOD COUNT (AUTO) 8.8 K/uL (3.6-10.2)
[2018-12-27 05:12] LABS: CREATININE 1.2 mg/dL (0.6-1.3); MAGNESIUM 2.2 mg/dL (1.8-2.4); PHOSPHOROUS 2.5 mg/dL (2.5-4.9); POTASSIUM 3.8 mmol/L (3.5-5.1)
[2018-12-27] MEDS: MEROPENEM 1 G in IV NORMAL SALINE 100 ML IV SCH ×3 (05:14→22:00)
[2018-12-27 05:15] LABS: VANCOMYCIN,RANDOM 20.1 ug/mL (18.0-26.0)
[2018-12-27 05:25] LABS: LYMPHOCYTES % (MANUAL) 16 % (20-40); MONOCYTES % (MANUAL) 12 % (2-10); NEUTROPHILS % (MANUAL) 67 % (42-75)
[2018-12-27] MEDS: PANTOPRAZOLE SODIUM 40 MG TABLET.DR PO SCH (06:05)
[2018-12-27] MEDS: ACETAMINOPHEN 325 MG TABLET PO PRN ×3 (06:23→22:08)
[2018-12-27] MEDS: FINASTERIDE 5 MG TABLET PO SCH (08:01)
[2018-12-27] MEDS: TAMSULOSIN HCL 0.4 MG CAP.SR.24H PO SCH (08:01)
[2018-12-27] MEDS: PROTEIN SUPPLEMENT (PROSTAT) 30 ML LIQUID PO SCH (08:02)
[2018-12-27] MEDS: GABAPENTIN 300 MG CAPSULE PO SCH ×3 (08:02→17:45)
[2018-12-27] MEDS: NORMAL SALINE FLUSH 10 ML DISP.SYRIN IV SCH ×2 (08:02→20:15)
[2018-12-27] MEDS: ALLOPURINOL 100 MG TABLET PO SCH (08:02)
[2018-12-27] MEDS: PANTOPRAZOLE ORAL SUSPENSION 40 MG SUSPDR.PKT GT SCH (09:00)
[2018-12-27 09:24] LABS: ABG HCO3 37.1 mmol/L; ABG PCO2 54.8 mmHg (35.0-45.0); ABG PH 7.449 (7.350-7.450); ABG SITE RIGHT RADIAL; ABG TOTAL HEMOGLOBIN 14.1 G/dL (13.5-18.0); COHb 1.8 % (0.5-1.5); MetHb 0.2 % (0.0-1.5); O2Hb 95.5 % (94.0-97.0); VENT MODE VENT - A/C; VT, ABG 600 mL
--- NOTE | 2018-12-27 09:36 | NUR ---
Nursing Note: Received pt with fever 102.2. Tylenol previously administered. Gave patient cooling bath to lower fever
[2018-12-27] MEDS: CLOTRIMAZOLE 1% CREAM 30 GM TUBE TOP SCH ×2 (09:41→17:45)
[2018-12-27] MEDS: VITAL AF 1.2 1,000 ML LIQUID GT PRN (10:00)
--- NOTE | 2018-12-27 12:00 | NUR ---
Nursing Note: Pt seen and examined by Dr. Mckinley and cardiology. Frequent PVC's discussed. No new orders noted. Frequent visual checks.
[2018-12-27] MEDS: MORPHINE SULFATE 4 MG/1 ML DISP.SYRIN IV PRN (14:40)
--- NOTE | 2018-12-27 14:43 | NUR ---
CLINICAL PHARMACY NOTE:VANCOMYCIN DOSING S To continue vancomycin dosing on 68 y/o male patient for possible septic shock O Temp 102.8F BUN 40 Scr 1.2 WBC 8.8 ht 172.7 cm wt 205 kg Trough 12/25 @2030: 38.2 Random 12/26 @ 1500: 22.6 Random today with am labs: 20.1 Plan Due to supratherapeutic trough, will dose per level for now. Last dose was 2gm on 12/25 ~1100. No dose yesterday per level. No dose for today per random in am. Next random ordered for tomorrow am. Will check level and re-dose as needed. Will follow
--- NOTE | 2018-12-27 15:45 | NUR ---
Nursing Note: Pt continued to have frequent PVC's and appears to be uncomfortable. Morphine administered as ordered
[2018-12-27] MEDS: FLUCONAZOLE 400MG /NS 200ML IV 400 MG in PREMIXED 1 EACH IV SCH (17:45)
--- NOTE | 2018-12-27 17:45 | NUR ---
PT REMAINS ON MECHANICAL VENTILATION, ABLE TO WEAN FIO2 TO 65%, NO OTHER CHANGES. PT TOLERATING VENT SETTINGS WELL WITH NO SOB NOTED. BVM AT BEDSIDE. WILL CONTINUE TO MONITOR.
[2018-12-27] MEDS: IV NORMAL SALINE 250 ML IV PRN (17:47)
--- NOTE | 2018-12-27 19:07 | NUR ---
Pt FiO2 gradually reduced to 65%. Cooling measures done throughout the day including cool bath q2 h, Cooling blanket and Tylenol as ordered . Endorsed all pertinent information.
--- NOTE | 2018-12-27 19:30 | NUR ---
PATIENT IN BED INTUBATED AND TOLERATING VENT SETTING NO RESPIRATORY DISTRESS NOTED, BREATHING EVEN WITH VENT . SATURATION 94% RR 23.PATIENT OPEN EYES SPONTANEOUSLY AND AND FOLLOW SIMPLE COMMANDS ABLE TO SQUEEZED HAND STRONG GRASP .ADVISED PATIENT NOT TO REMOVED OR PULL ETT OUT NOD HEAD THAT HE UNDERSTAND.LEVOPHED DRIP IN PROGRESS AT 5MCG/MIN TO KEEP SBP >90 MM/HG. TF IN PROGRESS VIA THE OGT TUBE ON VITAL AT 60 ML/HR , WILL CONTINUE TO MONITOR TOLERANCE AND RESIDUAL . INCONTINENT OF URINE .
--- NOTE | 2018-12-27 20:00 | NUR ---
SEEN AND EXAMINED BY case manager Addendum: 12/27/18 at 2054 by RANI HERRERA RN BAIRON WORKMAN AND BAIRON AWARE PATIENT STILL SPIKING TEMPERATURE AND THAT B/S WAS DONE DURING THE DAY SHIFT .
[2018-12-27] MEDS: NOREPINEPHRINE BITARTRATE 16 MG in IV DEXTROSE 5% 500 ML IV PRN (20:21)
[2018-12-27] MEDS ORDERED: MICAFUNGIN SODIUM 100 MG in IV NORMAL SALINE 100 ML IV ONE (21:30)
--- NOTE | 2018-12-27 21:30 | NUR ---
TF at 60 ml/hr checked residual ,20 ml ,increase to 70 ml/hr checked residual q 6 and increase by 10 goal for 90 ml/hr .hob up and aspiration precaution observed .
--- NOTE | 2018-12-27 22:08 | NUR ---
temp 100.4 rectally ,given prn tylenol .
[2018-12-28] VITALS (52 sets, daily range): BP systolic 90–124; BP diastolic 42–72
[2018-12-28] MEDS: IV NORMAL SALINE 250 ML IV PRN (01:39)
[2018-12-28] MEDS: PROPOFOL 100 ML IV PRN ×2 (01:40→14:40)
--- NOTE | 2018-12-28 02:50 | NUR ---
PT ON CONT VÁZQUEZ VENT WITH 7.5 ET/TUBE IN PLACE AND SECURED, WITH ANCHOR FAST, ROTATE Q2 HOURS, CURRENT VENT SETTINGS, A/C 20, VT 600ML, 65%, PEEP 8,, PT DOES ASSIST AT TIMES, GOOD COUGH EFFORT, SUCTIONED LIGHT PALE YELL TINGE SECRETIONS, ORAL CARE DONE, CHANGE HME AND CHECK CUFF, ALL VENT ALARMS OK, AMBU BAG AT BEDSIDE, NO VENT CHANGES MADE.Cruz TRIPATHI RCP Addendum: 12/28/18 at 0253 by YARIEL TRIPATHI RT Amended: Links added.
[2018-12-28] MEDS: CIPROFLOXACIN 0.3% OPHT DROP 2.5 ML BOTTLE RIGHTEYE SCH ×5 (04:02→20:18)
[2018-12-28] MEDS: MEROPENEM 1 G in IV NORMAL SALINE 100 ML IV SCH ×3 (05:06→21:41)
[2018-12-28 05:42] LABS: BASOPHILS # (AUTO) 0.1 K/uL (0.0-8.0); BASOPHILS % (AUTO) 0.5 % (0.0-2.0); EOSINOPHILS # (AUTO) 0.2 K/uL (0.0-0.7); EOSINOPHILS % (AUTO) 1.7 % (0.0-7.0); HEMATOCRIT 40.2 % (36.7-47.1); LYMPHOCYTES # (AUTO) 1.6 K/uL (20.0-40.0); MEAN CORPUSCULAR HEMOGLOBIN 32.9 uug (23.8-33.4); MEAN CORPUSCULAR HGB CONC 32 g/dL (32.5-36.3); MEAN CORPUSCULAR VOLUME 102.1 fL (73.0-96.2); MONOCYTES # (AUTO) 1.7 K/uL (2.0-10.0); MONOCYTES % (AUTO) 15.7 % (0.0-11.0); NEUTROPHILS # (AUTO) 7.2 K/uL (1.8-8.9); NEUTROPHILS % (AUTO) 67.1 % (38.5-71.5); PLATELET COUNT (AUTO) 169 K/uL (152-348); RED BLOOD CELL COUNT(AUTO) 3.94 MIL/uL (4.06-5.63); WHITE BLOOD COUNT (AUTO) 10.7 K/uL (3.6-10.2)
[2018-12-28 05:56] LABS: BILIRUBIN,TOTAL 4.6 mg/dL (0.2-1.0); CREATININE 1.1 mg/dL (0.6-1.3); MAGNESIUM 2.2 mg/dL (1.8-2.4); PHOSPHOROUS 2.7 mg/dL (2.5-4.9); POTASSIUM 3.7 mmol/L (3.5-5.1); TOTAL PROTEIN, SERUM 6.9 g/dL (6.4-8.2); VANCOMYCIN,RANDOM 9.3 ug/mL (18.0-26.0)
[2018-12-28 06:03] LABS: EOSINOPHILS % (MANUAL) 1 % (0-8); LYMPHOCYTES % (MANUAL) 12 % (20-40); MONOCYTES % (MANUAL) 13 % (2-10); NEUTROPHILS % (MANUAL) 74 % (42-75)
[2018-12-28] MEDS: VITAL AF 1.2 1,000 ML LIQUID GT PRN ×2 (06:36→17:57)
--- NOTE | 2018-12-28 07:20 | NUR ---
PT RECEIVED ORALLY INTUBATED WITH A SIZE 7.5 ETT SECURED WITH ANCHOR-FAST APPROX. 23CM AT THE LIP. PT IS ON A PB-840 VENT ON SETTINGS OF A/C V/C+, RATE 20, VT 600, 100% FIO2 AND +8 OF PEEP. VENT PARAMETERS AND ALARMS CHECKED, ALARMS ARE AUDIBLE. PT IS TOLERATING VENT SETTINGS WELL, NO RESP. DISTRESS NOTED AT THIS TIME. AMBU-BAG AT BEDSIDE. VENT PLUGGED INTO RED OUTLET. SUCTION PRN. WILL CONTINUE TO MONITOR.
--- NOTE | 2018-12-28 08:00 | NUR ---
Nursing Note: Seen by Dr. Mckinley. Continues to remain febrile. Cooling measure initiated.
[2018-12-28] MEDS: PROTEIN SUPPLEMENT (PROSTAT) 30 ML LIQUID PO SCH (08:19)
[2018-12-28] MEDS: FINASTERIDE 5 MG TABLET PO SCH (08:20)
[2018-12-28] MEDS: GABAPENTIN 300 MG CAPSULE PO SCH ×3 (08:20→17:55)
[2018-12-28] MEDS: ALLOPURINOL 100 MG TABLET PO SCH (08:20)
[2018-12-28] MEDS: ACETAMINOPHEN 325 MG TABLET PO PRN (08:20)
[2018-12-28] MEDS: PANTOPRAZOLE ORAL SUSPENSION 40 MG SUSPDR.PKT GT SCH (08:20)
[2018-12-28] MEDS: NORMAL SALINE FLUSH 10 ML DISP.SYRIN IV SCH ×2 (08:20→21:39)
[2018-12-28] MEDS: TAMSULOSIN HCL 0.4 MG CAP.SR.24H PO SCH (08:20)
[2018-12-28] MEDS ORDERED: VANCOMYCIN IV 2,000 MG in IV DEXTROSE 5% 500 ML IV ONE (08:45)
[2018-12-28] MEDS: CHOLECALCIFEROL 1,000 UNIT TABLET PO SCH (08:45)
[2018-12-28] MEDS: CLOTRIMAZOLE 1% CREAM 30 GM TUBE TOP SCH ×2 (08:52→17:55)
[2018-12-28 09:05] LABS: ABG BASE EXCESS 7.7 mmol/L; ABG HCO3 34.5 mmol/L; ABG PCO2 57.9 mmHg (35.0-45.0); ABG PH 7.393 (7.350-7.450); ABG PO2 77.9 mmHg (75.0-100.0); ABG SITE RIGHT RADIAL; ABG TOTAL HEMOGLOBIN 13.7 G/dL (13.5-18.0); COHb 1.9 % (0.5-1.5); MetHb 0.1 % (0.0-1.5); O2Hb 93.8 % (94.0-97.0); VENT MODE VENT - A/C; VT, ABG 600 mL
--- NOTE | 2018-12-28 10:00 | NUR ---
Nursing Note: Pt given cooling bath. Levophed stopped after titrating down.
--- NOTE | 2018-12-28 16:00 | NUR ---
Nursing Note. Seen and evaluated by Dr. He.
--- NOTE | 2018-12-28 18:00 | NUR ---
Nursing Note: Pt turned and repositioned every 2 hours throughout shift using bed and manually. Unable to obtain exact estimate of urine output but linens changed several times throughout shift. Currently Temp is 99.5
--- NOTE | 2018-12-28 20:00 | NUR ---
patient in bed orally intubated tolerating vent settings ,on ac 20/600/100% peep 12,suction orally and via the ett . thin to thick secretion whitish ,grayish color moderate in amount ,hob up,lightly sedated on propofol , patient open eyes to name and able to follow simple commands .moved bilateral upper arm ,slow and weak . lower leg flaccid . tf in progress and on vital af 1.2 at 80 ml hour checked residual 20 ml increase feeding rate to 90 ml /hr goal reach . flushed ogt with with water , incontinent of urine minna color, changed towel prn . on special bariatric mattress,turned and reposiiton using the bed cycle. off levophed drip . continue to monitor v/s.
[2018-12-28] MEDS: MICAFUNGIN SODIUM 100 MG in IV NORMAL SALINE 100 ML IV SCH (21:39)
[2018-12-29] VITALS (74 sets, daily range): BP systolic 66–115; BP diastolic 43–80
--- NOTE | 2018-12-29 | NUR ---
temp 99.9 F, via rectally ,cooling blanket used . continue to monitor v/s .
[2018-12-29] MEDS: CIPROFLOXACIN 0.3% OPHT DROP 2.5 ML BOTTLE RIGHTEYE SCH ×3 (00:04→08:40)
[2018-12-29] MEDS: IV NORMAL SALINE 250 ML IV PRN (02:50)
[2018-12-29 05:22] LABS: BASOPHILS # (AUTO) 0.1 K/uL (0.0-8.0); BASOPHILS % (AUTO) 0.7 % (0.0-2.0); EOSINOPHILS # (AUTO) 0.3 K/uL (0.0-0.7); EOSINOPHILS % (AUTO) 3.2 % (0.0-7.0); HEMATOCRIT 38.4 % (36.7-47.1); HEMOGLOBIN 12.3 g/dL (12.5-16.3); LYMPHOCYTES # (AUTO) 1.3 K/uL (20.0-40.0); LYMPHOCYTES % (AUTO) 15.1 % (20.5-51.5); MEAN CORPUSCULAR HEMOGLOBIN 32.7 uug (23.8-33.4); MEAN CORPUSCULAR HGB CONC 32 g/dL (32.5-36.3); MEAN CORPUSCULAR VOLUME 102.2 fL (73.0-96.2); MONOCYTES # (AUTO) 1.5 K/uL (2.0-10.0); MONOCYTES % (AUTO) 17.1 % (0.0-11.0); NEUTROPHILS # (AUTO) 5.5 K/uL (1.8-8.9); NEUTROPHILS % (AUTO) 63.9 % (38.5-71.5); PLATELET COUNT (AUTO) 175 K/uL (152-348); RED BLOOD CELL COUNT(AUTO) 3.76 MIL/uL (4.06-5.63); WHITE BLOOD COUNT (AUTO) 8.6 K/uL (3.6-10.2)
[2018-12-29 05:30] LABS: CREATININE 1.2 mg/dL (0.6-1.3); MAGNESIUM 2.4 mg/dL (1.8-2.4); PHOSPHOROUS 3.5 mg/dL (2.5-4.9); POTASSIUM 4.2 mmol/L (3.5-5.1)
[2018-12-29] MEDS: PROPOFOL 100 ML IV PRN ×2 (05:37→16:35)
[2018-12-29] MEDS: MEROPENEM 1 G in IV NORMAL SALINE 100 ML IV SCH ×3 (05:38→21:29)
--- NOTE | 2018-12-29 06:00 | NUR ---
bp recycle low 79/49 , started on Levophed drip . follow icu protocol for Levophed drip .
[2018-12-29 06:14] LABS: EOSINOPHILS % (MANUAL) 1 % (0-8); LYMPHOCYTES % (MANUAL) 12 % (20-40); MONOCYTES % (MANUAL) 12 % (2-10); NEUTROPHILS % (MANUAL) 75 % (42-75)
[2018-12-29] MEDS ORDERED: NOREPINEPHRINE BITARTRATE 4 MG/4 ML VIAL IV ONE ×3 (06:20→19:28)
[2018-12-29] MEDS: NOREPINEPHRINE BITARTRATE 16 MG in IV DEXTROSE 5% 500 ML IV PRN ×3 (06:39→19:42)
--- NOTE | 2018-12-29 07:30 | NUR ---
report received from Hyun SHAVER. Patient was admitted on 12/14/18 for CHF to [facility]. Now in CCU orally intubated since 12/23/18 for desaturation and unresponsiveness. remains intubated on Fio2 100%, tv 600, ac20, peep12.on on propofol; drip at 5 mcg/kg/min. on levophed drip at 5mcg/min.on Bariatric bed. temp 99.6 rectally. ekg atrial fib Addendum: 12/29/18 at 0917 by LISA HENDERSON RN Amended: Links added.
--- NOTE | 2018-12-29 07:35 | NUR ---
PT REMAIN ON CONTINUOUS VÁZQUEZ VENT AC 20 VT 600 PEEP 12 FIO1 100%. ETT 7.5 SECURED AT 23CM LIP LINE VIA ANCHOR FAST REPOSITIONING IT FROM LEFT MID AND RIGHT SIDE OF LIP. AMBU BAG AT BEDSIDE. BS DIMINISHED. SUCTION LAVAGE PRN SMALL AMOUNT THICK YELLOW WITH BLOOD TINGED SECRETIONS. VENT CHECKED, ALARMS WORKING WELL AND AUDIBLE.WILL CONTINUE TO MONITOR.
[2018-12-29 08:09] LABS: ABG BASE EXCESS 6.2 mmol/L; ABG PH 7.381 (7.350-7.450); ABG PO2 84.4 mmHg (75.0-100.0); ABG SITE LEFT RADIAL; ABG TOTAL HEMOGLOBIN 14.1 G/dL (13.5-18.0); COHb 1.7 % (0.5-1.5); MetHb 0.3 % (0.0-1.5); O2Hb 94.6 % (94.0-97.0); VENT MODE VENT - A/C; VT, ABG 600 mL
[2018-12-29] MEDS: PROTEIN SUPPLEMENT (PROSTAT) 30 ML LIQUID PO SCH (08:14)
[2018-12-29] MEDS: FINASTERIDE 5 MG TABLET PO SCH (08:15)
[2018-12-29] MEDS: TAMSULOSIN HCL 0.4 MG CAP.SR.24H PO SCH (08:15)
[2018-12-29] MEDS: PANTOPRAZOLE ORAL SUSPENSION 40 MG SUSPDR.PKT GT SCH (08:15)
[2018-12-29] MEDS: GABAPENTIN 300 MG CAPSULE PO SCH ×3 (08:15→17:26)
[2018-12-29] MEDS: ALLOPURINOL 100 MG TABLET PO SCH (08:16)
[2018-12-29] MEDS: CLOTRIMAZOLE 1% CREAM 30 GM TUBE TOP SCH ×2 (08:17→17:26)
[2018-12-29] MEDS: NORMAL SALINE FLUSH 10 ML DISP.SYRIN IV SCH ×2 (08:43→20:16)
[2018-12-29] MEDS: FUROSEMIDE 40 MG/4 ML VIAL IV SCH ×2 (09:22→20:15)
--- NOTE | 2018-12-29 11:40 | NUR ---
seen by BAIRON Huerta. orders received. Addendum: 12/29/18 at 1140 by LISA HENDERSON RN Amended: Links added.
[2018-12-29] MEDS: ACETAMINOPHEN 325 MG TABLET PO PRN (12:51)
--- NOTE | 2018-12-29 12:51 | NUR ---
medicated with Tylenol via OGT, cooling machines on and ice bags applied. talked to Bernice WADDELL for ID, orders received Addendum: 12/29/18 at 1342 by LISA HENDERSON RN Amended: Links added.
[2018-12-29] MEDS ORDERED: MEROPENEM 1 G in IV NORMAL SALINE 100 ML IV SCH (14:00)
[2018-12-29] MEDS: VITAL AF 1.2 1,000 ML LIQUID GT PRN (14:29)
[2018-12-29] MEDS: PHENYLEPHRINE IV 80 MG in IV DEXTROSE 5% 250 ML IV PRN (16:31)
--- NOTE | 2018-12-29 19:29 | NUR ---
report given to Huyn RN Addendum: 12/29/18 at 1930 by LISA HENDERSON RN Amended: Links added.
--- NOTE | 2018-12-29 19:30 | NUR ---
rounds made patient in bed .open eyes to name and light touch , sedated on propofol sedation vacation done follow simple commands but very weak and slow .orally intubated ,ac 20/600/100% peep 12 . suction via ett and via mouth .saturation 88 to 95%.hob .TF via OGT and on vital 1.2 at 90 ml goal .flushed with water patent low residual 20 ml . aspiration precaution observed.on neosynephrine drip 190 mg/min .bp 74/51 ,restarted norepinephrine drip follow icu protocol to keep sbp >90 mm/hg. temp 97.8 F rectally.continue to monitor v/s and levels of comfort .
[2018-12-29] MEDS: MICAFUNGIN SODIUM 100 MG in IV NORMAL SALINE 100 ML IV SCH (20:16)
[2018-12-30] VITALS (96 sets, daily range): BP systolic 62–106; BP diastolic 36–73
[2018-12-30] MEDS: PHENYLEPHRINE IV 80 MG in IV DEXTROSE 5% 250 ML IV PRN ×4 (00:16→21:33)
[2018-12-30] MEDS: PROPOFOL 100 ML IV PRN ×3 (02:33→21:32)
[2018-12-30 04:57] LABS: BASOPHILS # (AUTO) 0.1 K/uL (0.0-8.0); BASOPHILS % (AUTO) 0.6 % (0.0-2.0); EOSINOPHILS # (AUTO) 0.1 K/uL (0.0-0.7); EOSINOPHILS % (AUTO) 0.8 % (0.0-7.0); HEMATOCRIT 45.2 % (36.7-47.1); HEMOGLOBIN 14.2 g/dL (12.5-16.3); LYMPHOCYTES # (AUTO) 2.1 K/uL (20.0-40.0); LYMPHOCYTES % (AUTO) 15.7 % (20.5-51.5); MEAN CORPUSCULAR HEMOGLOBIN 32.6 uug (23.8-33.4); MEAN CORPUSCULAR HGB CONC 31 g/dL (32.5-36.3); MONOCYTES # (AUTO) 2.4 K/uL (2.0-10.0); MONOCYTES % (AUTO) 17.6 % (0.0-11.0); NEUTROPHILS # (AUTO) 8.8 K/uL (1.8-8.9); NEUTROPHILS % (AUTO) 65.3 % (38.5-71.5); PLATELET COUNT (AUTO) 269 K/uL (152-348); RED BLOOD CELL COUNT(AUTO) 4.35 MIL/uL (4.06-5.63); WHITE BLOOD COUNT (AUTO) 13.5 K/uL (3.6-10.2)
[2018-12-30 05:17] LABS: CREATININE 1.6 mg/dL (0.6-1.3); MAGNESIUM 2.5 mg/dL (1.8-2.4); PHOSPHOROUS 5.2 mg/dL (2.5-4.9); POTASSIUM 4.9 mmol/L (3.5-5.1); TOTAL PROTEIN, SERUM 7.4 g/dL (6.4-8.2)
[2018-12-30] MEDS: MEROPENEM 1 G in IV NORMAL SALINE 100 ML IV SCH ×3 (05:20→21:35)
[2018-12-30 05:22] LABS: *BILIRUBIN,URIN 2+ (NEGATIVE); *BLOOD, URINE 1+ (NEGATIVE); *CLARITY,URINE CLEAR (CLEAR); *COLOR,URINE DARK YELLOW (YELLOW); *KETONES,URINE TRACE (NEGATIVE); *UROBILINOGEN,URINE >=8.0 E.U./dl (NORMAL); LEUKOCYTE ESTERASE ,URINE TRACE (NEGATIVE); NITRITE, URINE NEGATIVE (NEGATIVE); UGLUCOSE NEGATIVE (NEGATIVE)
[2018-12-30 05:37] LABS: BACTERIA,URINE FEW /HPF (NONE SEEN); SQUAMOUS EPITHELIAL CELL,UR FEW /HPF (NONE SEEN)
[2018-12-30 05:39] LABS: LYMPHOCYTES % (MANUAL) 20 % (20-40); MONOCYTES % (MANUAL) 14 % (2-10); NEUTROPHILS % (MANUAL) 66 % (42-75)
[2018-12-30] MEDS: ALBUTEROL SULFATE 2.5 MG/ 0.5 ML NEBU NEB PRN ×2 (07:10→23:14)
--- NOTE | 2018-12-30 07:35 | NUR ---
Nursing Note: Received phone call from Radiology with new order to advance ET tube by 3cm due to result of X-ray.
--- NOTE | 2018-12-30 07:53 | NUR ---
Nursing Note: Seen and evaluated by Dr. Misael Harris
--- NOTE | 2018-12-30 07:58 | NUR ---
Nursing Note: Seen and evaluated by BAIRON Henry
[2018-12-30] MEDS: IV D5/ 0.9% NACL 1,000 ML IV PRN ×2 (08:12→18:13)
[2018-12-30] MEDS: ALLOPURINOL 100 MG TABLET PO SCH (08:15)
[2018-12-30] MEDS: GABAPENTIN 300 MG CAPSULE PO SCH ×3 (08:19→17:34)
[2018-12-30] MEDS: TAMSULOSIN HCL 0.4 MG CAP.SR.24H PO SCH (08:19)
[2018-12-30] MEDS: FINASTERIDE 5 MG TABLET PO SCH (08:20)
[2018-12-30] MEDS: PANTOPRAZOLE ORAL SUSPENSION 40 MG SUSPDR.PKT GT SCH (08:20)
[2018-12-30] MEDS: NORMAL SALINE FLUSH 10 ML DISP.SYRIN IV SCH ×2 (08:20→20:13)
[2018-12-30] MEDS: PROTEIN SUPPLEMENT (PROSTAT) 30 ML LIQUID PO SCH (08:20)
[2018-12-30] MEDS: CLOTRIMAZOLE 1% CREAM 30 GM TUBE TOP SCH ×2 (08:45→17:35)
--- NOTE | 2018-12-30 09:00 | NUR ---
Nursing Note: Pt noted to be in and out of RVR unsustained. made aware. No new orders
[2018-12-30] MEDS: VITAL AF 1.2 1,000 ML LIQUID GT PRN (10:08)
--- NOTE | 2018-12-30 10:50 | NUR ---
Nursing Note: Pt continues to be in and out of RVR. Remaining VS stable. Cardiology contacted. Awaiting consult
[2018-12-30] MEDS: NOREPINEPHRINE BITARTRATE 16 MG in IV DEXTROSE 5% 500 ML IV PRN (11:58)
--- NOTE | 2018-12-30 12:00 | NUR ---
Nursing Note: Seen by Cardiology and Pulmonary. Discussed all changes today with patients conditions. Awaiting new orders
[2018-12-30] MEDS ORDERED: DIGOXIN 500 MCG/2 ML AMP IV ONE (13:00)
--- NOTE | 2018-12-30 13:30 | NUR ---
New order: New order administered as ordered. Rate slightly reduced see vital signs
--- NOTE | 2018-12-30 13:38 | NUR ---
CLINICAL PHARMACY NOTE:VANCOMYCIN DOSING Request to restart vancomycin on 68 y/o patient 172.72 cm 205kg ID recommended Temp 100 BUN 81 Scr 1.6 WBC 13.5 patient also on Merrem and Mycamine Give vancomycin 2gm ivpb today. Will dose by levels due to decreasing renal function. Ordered random vancomycin level for tomorrow. Will continue to monitor
[2018-12-30] MEDS ORDERED: VANCOMYCIN IV 2,000 MG in IV DEXTROSE 5% 500 ML IV ONE (14:00)
--- NOTE | 2018-12-30 14:00 | NUR ---
Nursing Note: Pt BP not sustaining. Cardilogy aware. Titrating Vasopressors as ordered.
[2018-12-30 15:53] LABS: ABG BASE EXCESS -4.8 mmol/L; ABG HCO3 24.7 mmol/L; ABG PCO2 64.7 mmHg (35.0-45.0); ABG PH 7.199 (7.350-7.450); ABG PO2 87.2 mmHg (75.0-100.0); ABG SITE RIGHT RADIAL; ABG TOTAL HEMOGLOBIN 15.4 G/dL (13.5-18.0); COHb 1.6 % (0.5-1.5); MetHb 0.2 % (0.0-1.5); O2Hb 93.2 % (94.0-97.0); VENT MODE VENT - A/C; VT, ABG 600 mL
--- NOTE | 2018-12-30 16:00 | NUR ---
Nursing Note: ABG done. Relayed to Dr. Hull. New order for Vent Changes. Rate changed to 24 and Tidal Volume increased to 650
--- NOTE | 2018-12-30 19:20 | NUR ---
Patient received on ordered vent settings of AC 24, Vt 650, Peep+12, on 100% FiO2. He is orally intubated with a 7.5 ETtube, ~26cm lipline. Tube is secure with Anchorfast and location of tube will be changed throughout the shift for skin integrity. Small amounts of thick yellowish helton secretion suctioned. Oral care rendered and tolerated well. Alarm parameters assessed and are on and audible. Will continue to monitor throughout shift.
[2018-12-30] MEDS: MICAFUNGIN SODIUM 100 MG in IV NORMAL SALINE 100 ML IV SCH (20:12)
[2018-12-31] VITALS (21 sets, daily range): BP systolic 65–97; BP diastolic 39–71
[2018-12-31] MEDS: ACETAMINOPHEN 325 MG TABLET PO PRN ×2 (00:14→05:09)
[2018-12-31] MEDS: PHENYLEPHRINE IV 80 MG in IV DEXTROSE 5% 250 ML IV PRN (01:37)
[2018-12-31] MEDS ORDERED: NOREPINEPHRINE BITARTRATE 4 MG/4 ML VIAL IV ONE (01:59)
[2018-12-31] MEDS ORDERED: PHENYLEPHRINE 10 MG/1 ML VIAL ONE (02:09)
[2018-12-31] MEDS: DOPamine IV DRIP 400 MG/250ML 250 ML IV PRN ×3 (05:18→06:55)
[2018-12-31] MEDS: MEROPENEM 1 G in IV NORMAL SALINE 100 ML IV SCH (05:19)
[2018-12-31 05:21] LABS: BASOPHILS # (AUTO) 0.1 K/uL (0.0-8.0); BASOPHILS % (AUTO) 0.5 % (0.0-2.0); EOSINOPHILS % (AUTO) 0.2 % (0.0-7.0); HEMATOCRIT 47.4 % (36.7-47.1); HEMOGLOBIN 14.7 g/dL (12.5-16.3); LYMPHOCYTES # (AUTO) 1.9 K/uL (20.0-40.0); LYMPHOCYTES % (AUTO) 10.5 % (20.5-51.5); MEAN CORPUSCULAR HEMOGLOBIN 32.7 uug (23.8-33.4); MEAN CORPUSCULAR HGB CONC 31 g/dL (32.5-36.3); MEAN CORPUSCULAR VOLUME 105.3 fL (73.0-96.2); MONOCYTES # (AUTO) 2.1 K/uL (2.0-10.0); MONOCYTES % (AUTO) 11.5 % (0.0-11.0); NEUTROPHILS # (AUTO) 14.1 K/uL (1.8-8.9); NEUTROPHILS % (AUTO) 77.3 % (38.5-71.5); PLATELET COUNT (AUTO) 340 K/uL (152-348); RED BLOOD CELL COUNT(AUTO) 4.51 MIL/uL (4.06-5.63); WHITE BLOOD COUNT (AUTO) 18.2 K/uL (3.6-10.2)
[2018-12-31 05:22] LABS: CREATININE 2.6 mg/dL (0.6-1.3); DIGOXIN 1.6 ng/mL (0.9-2.0); MAGNESIUM 2.7 mg/dL (1.8-2.4); PHOSPHOROUS 6.7 mg/dL (2.5-4.9)
[2018-12-31] MEDS ORDERED: IV NS 1000 ML 1,000 ML IV ONE ×3 (05:30→06:10)
[2018-12-31 05:37] LABS: POTASSIUM 6.4 mmol/L (3.5-5.1)
[2018-12-31 06:18] LABS: LYMPHOCYTES % (MANUAL) 7 % (20-40); MONOCYTES % (MANUAL) 8 % (2-10); NEUTROPHILS % (MANUAL) 85 % (42-75)
[2018-12-31] MEDS ORDERED: SODIUM POLYSTYRENE SULFONATE 15 G/60 ML LIQUID UDC PO ONE (06:20)
--- NOTE | 2018-12-31 07:01 | NUR ---
PATIENT RECEIVED ORALLY INTUBATED WITH SIZE 7.5 ETT, SECURED AT APPROXIMATELY 26CM AT THE LIP WITH ANCHOR FAST. PATIENT IS ON A VENT WITH SETTINGS OF AC24, VT650, +12, 100% FIO2. VENT IS PLUGGED INTO RED EMERGENCY OUTLET. VENT ALARMS ARE ON AND AUDIBLE. SX'D SMALL THICK YELLOW/SUNSHINE SECRETIONS. AMBUBAG AT BEDSIDE. PATIENT SATURATIONS VARY BETWEEN 80-85%, NURSE AWARE. WILL CONTINUE TO MONITOR AND REPORT ANY CHANGES THROUGH OUT SHIFT.
--- NOTE | 2018-12-31 07:46 | NUR ---
Nursing Note: Code blue called. CPR initiated per ACLS protocol
--- NOTE | 2018-12-31 07:46 | NUR ---
CODE BLUE CALLED. PATIENT NOTED WITH NO PULSE, CPR INITIATED, BAGGED WITH 100% FIO2. ASSISTED DURING CODE BLUE BY NURSES AND RTS. DOCTOR PRESENT. DOCTOR PRONOUNCED PATIENT AT 0802.
--- NOTE | 2018-12-31 08:02 | NUR ---
Nursing Note: Code time ended. See Code blue record for details.
--- NOTE | 2018-12-31 08:03 | NUR ---
Nursing Note: Patient apneic for 1 minute pupils fixed and dilated. No audible heart sounds. No breath sounds for one minute. No palpable pulses for one minute. No corneal reflexes. Pt pronounced at [address] Alberto Johnson. All involved practitioners in agreement with pronouncement.
[2018-12-31] MEDS ORDERED: SODIUM BICARBONATE 8.4% 50 MEQ/50 ML DISP.SYRIN IV ONE (08:08)
[2018-12-31] MEDS ORDERED: CALCIUM CHLORIDE 1 GM/10 ML DISP.SYRIN IV ONE (08:08)
[2018-12-31] MEDS ORDERED: EPINEPHRINE 1:10,000 1 MG/10 ML DISP.SYRIN IV ONE (08:08)
--- NOTE | 2018-12-31 08:11 | NUR ---
Nursing Note: [facility] called. Spoke with Shirley. .
--- NOTE | 2018-12-31 08:30 | NUR ---
Nursing Note: Pt brother at bedside. Awaiting information regarding mortuary
== END 2018-12-31 09:45 | disposition expired | DRG 207 ==
LOC: ER 14:22 → CCU 21:44 → TELE3 22:15 → TELE-TD3 22:28 → CCU 12-18 21:25 → DOU3 12-19 17:07 → TELE-TD3 12-19 17:42 → CCU 12-23 15:48
PROVIDERS: ADMIT Nurse Practitioner Acute Care; ATTEND Nurse Practitioner Acute Care
PROC: 5A1955Z Respiratory Ventilation, Greater than 96 Consecutive Hours (ICD-10-PCS; principal; 2018-12-14)
PROC: 5A1945Z Respiratory Ventilation, 24-96 Consecutive Hours (ICD-10-PCS; 2018-12-23)
PROC: 0BH17EZ Insertion of Endotracheal Airway into Trachea, Via Natural or Artificial Opening (ICD-10-PCS; 2018-12-23)
PROC: 05HA33Z Insertion of Infusion Device into Left Brachial Vein, Percutaneous Approach (ICD-10-PCS; 2018-12-23)
PROC: 02HV33Z Insertion of Infusion Device into Superior Vena Cava, Percutaneous Approach (ICD-10-PCS; 2018-12-23)
PROC: 5A12012 Performance of Cardiac Output, Single, Manual (ICD-10-PCS; 2018-12-31)
DX: J96.21 Acute and chronic respiratory failure with hypoxia (principal); I50.43 Acute on chronic combined systolic (congestive) and diastolic (congestive) heart failure; G92 Toxic encephalopathy; E43 Unspecified severe protein-calorie malnutrition; A41.9 Sepsis, unspecified organism; R65.21 Severe sepsis with septic shock; J69.0 Pneumonitis due to inhalation of food and vomit; N17.0 Acute kidney failure with tubular necrosis; E66.2 Morbid (severe) obesity with alveolar hypoventilation; Z68.45 Body mass index [BMI] 70 or greater, adult; N39.0 Urinary tract infection, site not specified; E87.0 Hyperosmolality and hypernatremia; D68.59 Other primary thrombophilia; I11.0 Hypertensive heart disease with heart failure; J96.22 Acute and chronic respiratory failure with hypercapnia; I48.2 Chronic atrial fibrillation; Z79.01 Long term (current) use of anticoagulants; E11.42 Type 2 diabetes mellitus with diabetic polyneuropathy; D69.6 Thrombocytopenia, unspecified; M10.9 Gout, unspecified; N40.0 Benign prostatic hyperplasia without lower urinary tract symptoms; Z88.0 Allergy status to penicillin; Z99.81 Dependence on supplemental oxygen; N50.89 Other specified disorders of the male genital organs; I25.10 Atherosclerotic heart disease of native coronary artery without angina pectoris; H10.9 Unspecified conjunctivitis; E87.6 Hypokalemia; E83.42 Hypomagnesemia; N13.5 Crossing vessel and stricture of ureter without hydronephrosis; E86.9 Volume depletion, unspecified; I87.2 Venous insufficiency (chronic) (peripheral)
CPT/HCPCS: 36415; 36600; 70030-TC; 71045; 74018; 76700; 82803; 83605; 83690; 83735; 84100; 84443; 84478; 85025; 85610; 85730; 87040; 87070; 87086; 93005; 93307; 94002; 94003; 94640; 94660; 94664; 97110; 97112; 97530; A4217; A4663; C9113; G0378; J0171; J1120; J1160; J1265; J1450; J1650; J1940; J1956; J2185; J2248; J2270; J2370; J2405; J3370; J3480; J3490; J7030; J7040; J7042; J7050; J7060; J8499